=== PATIENT | male | born 1950 | race Caucasian/White ===

== ENCOUNTER 2016-12-25 18:05 | Inpatient (IN) | payer MEDICARE ==
[2016-12-25] MEDS ORDERED: SODIUM CHLORIDE 0.9% 500 ML IV STA (18:27)
[2016-12-25] MEDS ORDERED: SODIUM CHLORIDE 0.9% 1,000 ML IV STA (18:27)
--- NOTE | 2016-12-25 18:33 | ED ---
General Adult HPI - General Source: patient, RN notes reviewed, old records reviewed Mode of arrival: ambulatory Limitations: no limitations <Letitia Bonds - Last Filed: 12/25/16 19:06> <Maverick Pantoja - Last Filed: 12/25/16 20:21> - General Chief complaint: Upper Respiratory Infection Stated complaint: CHEST CONGESTION Time Seen by Provider: 12/25/16 18:18 - History of Present Illness Initial comments: Patient is 66-year-old male with chief complaint of right-sided chest pain for the past day. Patient reports that he will have intermittent spells of this chest pain. Patient reports that this current spell of a dull ache started at 3 PM today. Patient reports that he's had history of a heart attack in 2011. Patient reports that at that time he was placed on blood pressure and cholesterol medications however he had poor side effects of the patient reports that he does not take any blood pressure or cholesterol medications at this time. Patient states that he is a nonsmoker. He states that the pain has occurred intermittently through the past week he has this dull ache and will subside and 30 minutes. Patient reports that today he's had prolonged periods the dull ache. Patient denies any other sensory symptoms including diaphoresis or shortness of breath. Patient reports he's had a poor appetite today. He denies any fevers. He states he's had no specific cough. (Letitia Bonds) - Related Data Home Medications Medication Instructions Recorded Confirmed HYDROcodone/APAP 7.5-325MG [[place] 1 tab PO QID PRN 12/25/16 12/25/16 7.5-325] Allergies Allergy/AdvReac Type Severity Reaction Status Date / Time ibuprofen AdvReac GI BLEED Verified 12/25/16 18:34 Review of Systems ROS Other: All systems not noted in ROS Statement are negative. <Letitia Bonds - Last Filed: 12/25/16 19:06> ROS Other: All systems not noted in ROS Statement are negative. <Maverick Pantoja - Last Filed: 12/25/16 20:21> ROS Statement: Those systems with pertinent positive or pertinent negative responses have been documented in the HPI. Past Medical History Past Medical History: Hypertension, Myocardial Infarction ([place]) Additional Past Medical History / Comment(s): Rheumatic fever History of Any Multi-Drug Resistant Organisms: None Reported Past Surgical History: No Surgical Hx Reported Past Psychological History: No Psychological Hx Reported Smoking Status: Never smoker Past Alcohol Use History: None Reported Past Drug Use History: None Reported <Letitia Bonds - Last Filed: 12/25/16 19:06> General Exam Limitations: no limitations General appearance: alert, in no apparent distress Head exam: Present: atraumatic, normocephalic, normal inspection Eye exam: Present: normal appearance, PERRL, EOMI. Absent: scleral icterus, conjunctival injection, periorbital swelling ENT exam: Present: normal exam, mucous membranes moist Neck exam: Present: normal inspection. Absent: tenderness, meningismus, lymphadenopathy Respiratory exam: Present: normal lung sounds bilaterally. Absent: respiratory distress, wheezes, rales, rhonchi, stridor Cardiovascular Exam: Present: regular rate, normal rhythm, normal heart sounds. Absent: systolic murmur, diastolic murmur, rubs, gallop, clicks GI/Abdominal exam: Present: soft, normal bowel sounds. Absent: distended, tenderness, guarding, rebound, rigid Extremities exam: Present: normal inspection, full ROM, normal capillary refill. Absent: tenderness, pedal edema, joint swelling, calf tenderness Back exam: Present: normal inspection Neurological exam: Present: alert, oriented X3, CN II-XII intact Psychiatric exam: Present: normal affect, normal mood Skin exam: Present: warm, dry, intact, normal color. Absent: rash <Letitia Bonds - Last Filed: 12/25/16 19:06> <Maverick Pantoja - Last Filed: 12/25/16 20:21> - General Exam Comments Initial Comments: Bubba is a 66-year-old male. He is on appear to be in any acute distress. ( Letitia Bonds) Course <Letitia Bonds - Last Filed: 12/25/16 19:06> <Maverick Pantoja - Last Filed: 12/25/16 20:21> Vital Signs 12/25/16 12/25/16 12/25/16 18:10 18:52 19:06 Temperature 98.3 F Pulse Rate 103 H 103 H 91 Respiratory 22 18 18 Rate Blood Pressure 157/82 152/91 154/71 O2 Sat by Pulse 97 98 98 Oximetry 12/25/16 19:11 Temperature Pulse Rate 101 H Respiratory 18 Rate Blood Pressure 140/81 O2 Sat by Pulse 97 Oximetry - Reevaluation(s) Reevaluation #1: 12/25/16 19:00 Was transferred to the North side of the emergency department because of chest pain and irregular EKG. Patient does state that he had a heart attack in 2006 but never went to the doctor's. He was told 3 days later by his doctor that he had one. He's had cold symptoms for about a week and a half started developing some right-sided chest pain. He states his pain was 9/10 currently 2-3/10 and he is diaphoretic he denies any other symptoms right now. He has no ALLERGIES. (Maverick Pantoja) Reevaluation #2: 12/25/16 20:03 Reevaluation patient he is pain-free at this time he shows no change from the original one. With exodeviation right bundle-branch block changes rate was 89 ND interval 156 QRS duration 168 QT/QTC of 426/518 (Maverick Pantoja) Reevaluation #3: 12/25/16 20:18 I did reevaluate the patient he still pain-free a long discussion with him and his family regarding the findings. I did discuss case with Dr. Tony from cardiology the patient will go to the [facility]. I did discuss case with Dr. Zurita. (Maverick Pantoja) Medical Decision Making - Lab Data Result diagrams: 12/25/16 18:55 12/25/16 18:55 - EKG Data -: EKG Interpreted by Me EKG shows normal: sinus rhythm (Sinus rhythm rate 90. Interval 154 QRS duration was 70 daily since QTC of 460/5 weight right bundle-branch block left exodeviation septal changes. No old EKG was found) - Radiology Data Radiology results: report reviewed (I did review the x-ray report is evidence of a patchy opacity or infiltrate posteriorly.), image reviewed <Maverick Pantoja - Last Filed: 12/25/16 20:21> - Lab Data Lab Results 12/25/16 12/25/16 12/25/16 Range/Units 18:55 18:55 18:55 WBC 11.7 H (3.8-10.6) k/uL RBC 5.64 (4.30-5.90) m/uL Hgb 16.1 (13.0-17.5) gm/dL Hct 48.8 (39.0-53.0) % MCV 86.5 (80.0-100.0) fL MCH 28.5 (25.0-35.0) pg MCHC 33.0 (31.0-37.0) g/dL RDW 13.1 (11.5-15.5) % Plt Count 216 (150-450) k/uL Neutrophils % 74 % Lymphocytes % 16 % Monocytes % 6 % Eosinophils % 3 % Basophils % 1 % Neutrophils # 8.6 H (1.3-7.7) k/uL Lymphocytes # 1.9 (1.0-4.8) k/uL Monocytes # 0.7 (0-1.0) k/uL Eosinophils # 0.4 (0-0.7) k/uL Basophils # 0.1 (0-0.2) k/uL PT (9.0-12.0) sec INR (<1.1) APTT (22.0-30.0) sec D-Dimer (<0.60) mg/L FEU Sodium 141 (137-145) mmol/L Potassium 4.1 (3.5-5.1) mmol/L Chloride 102 (98-107) mmol/L Carbon Dioxide 23 (22-30) mmol/L Anion Gap 16 mmol/L BUN 9 (9-20) mg/dL Creatinine 0.80 (0.66-1.25) mg/dL Est GFR (MDRD) Af Amer >60 (>60 ml/min/1.73 sqM) Est GFR (MDRD) Non-Af >60 (>60 ml/min/1.73 sqM) Glucose 222 H (74-99) mg/dL Calcium 9.9 (8.4-10.2) mg/dL Magnesium 1.8 (1.6-2.3) mg/dL Total Bilirubin 1.1 (0.2-1.3) mg/dL AST 166 H (17-59) U/L ALT 41 (21-72) U/L Alkaline Phosphatase 80 (38-126) U/L Total Creatine Kinase 1120 H (55-170) U/L CK-MB (CK-2) 54.1 H* (0.0-2.4) ng/mL CK-MB (CK-2) Rel Index 4.8 Troponin I 5.730 H* (0.000-0.034) ng/mL NT-Pro-B Natriuret Pep pg/mL Total Protein 8.4 H (6.3-8.2) g/dL Albumin 4.5 (3.5-5.0) g/dL 12/25/16 12/25/16 Range/Units 18:55 18:55 WBC (3.8-10.6) k/uL RBC (4.30-5.90) m/uL Hgb (13.0-17.5) gm/dL Hct (39.0-53.0) % MCV (80.0-100.0) fL MCH (25.0-35.0) pg MCHC (31.0-37.0) g/dL RDW (11.5-15.5) % Plt Count (150-450) k/uL Neutrophils % % Lymphocytes % % Monocytes % % Eosinophils % % Basophils % % Neutrophils # (1.3-7.7) k/uL Lymphocytes # (1.0-4.8) k/uL Monocytes # (0-1.0) k/uL Eosinophils # (0-0.7) k/uL Basophils # (0-0.2) k/uL PT 10.6 (9.0-12.0) sec INR 1.1 (<1.1) APTT 24.9 (22.0-30.0) sec D-Dimer 0.60 H (<0.60) mg/L FEU Sodium (137-145) mmol/L Potassium (3.5-5.1) mmol/L Chloride (98-107) mmol/L Carbon Dioxide (22-30) mmol/L Anion Gap mmol/L BUN (9-20) mg/dL Creatinine (0.66-1.25) mg/dL Est GFR (MDRD) Af Amer (>60 ml/min/1.73 sqM) Est GFR (MDRD) Non-Af (>60 ml/min/1.73 sqM) Glucose (74-99) mg/dL Calcium (8.4-10.2) mg/dL Magnesium (1.6-2.3) mg/dL Total Bilirubin (0.2-1.3) mg/dL AST (17-59) U/L ALT (21-72) U/L Alkaline Phosphatase (38-126) U/L Total Creatine Kinase (55-170) U/L CK-MB (CK-2) (0.0-2.4) ng/mL CK-MB (CK-2) Rel Index Troponin I (0.000-0.034) ng/mL NT-Pro-B Natriuret Pep 2700 pg/mL Total Protein (6.3-8.2) g/dL Albumin (3.5-5.0) g/dL Critical Care Time <Letitia Bonds - Last Filed: 12/25/16 19:06> Critical Care Time: Yes <Maverick Pantoja - Last Filed: 12/25/16 20:21> Critical Care Time: 35 minutes of critical care time which included the initial history physical evaluation of labs and x-rays reevaluation patient response to therapy reevaluation of the patient several other medications. Discussion with the physician. Admission orders and DrLadarius mentation the above (Maverick Pantoja) Disposition <Letitia Bonds - Last Filed: 12/25/16 19:06> <Maverick Pantoja - Last Filed: 12/25/16 20:21> Clinical Impression: Non-ST elevation myocardial infarction (NSTEMI), Elevated troponin, Right bundle branch block, Left axis deviation Disposition: ADMITTED IP TO THIS [facility] Condition: Serious
[2016-12-25] MEDS ORDERED: NITROGLYCERIN SL TABS 0.4 MG TAB SUBLINGUAL STA (18:44)
[2016-12-25] MEDS ORDERED: ASPIRIN 81 MG CHEW PO STA (18:44)
[2016-12-25 19:13] LABS: Basophils # (A) 0.1 k/uL (0-0.2); Basophils % (A) 1 %; CH 29.7; CHCM 34.5; Eosinophils # (A) 0.4 k/uL (0-0.7); Eosinophils % (A) 3 %; HCT 48.8 % (39.0-53.0); HDW 2.84; HGB 16.1 gm/dL (13.0-17.5); Luc # (Auto) 0.13; Luc % (Auto) 1; Lymphocytes # (A) 1.9 k/uL (1.0-4.8); Lymphocytes % (A) 16 %; MCH 28.5 pg (25.0-35.0); MCV 86.5 fL (80.0-100.0); Mean Platelet Volume 7.6; Monocytes # (A) 0.7 k/uL (0-1.0); Monocytes % (A) 6 %; Neutrophils # (A) 8.6 k/uL (1.3-7.7); Neutrophils % (A) 74 %; RBC 5.64 m/uL (4.30-5.90); RDW 13.1 % (11.5-15.5); WBC 11.7 k/uL (3.8-10.6); WBC (Perox) 11.53
[2016-12-25 19:21] LABS: ALT 41 U/L (21-72); AST 166 U/L (17-59); Alkaline Phosphatase 80 U/L (38-126); Anion Gap 16 mmol/L; Blood Urea Nitrogen 9 mg/dL (9-20); Calcium 9.9 mg/dL (8.4-10.2); Carbon Dioxide 23 mmol/L (22-30); Chloride 102 mmol/L (98-107); Glucose 222 mg/dL (74-99); Magnesium 1.8 mg/dL (1.6-2.3); Non-African American GFR(MDRD) >60 (>60 ml/min/1.73 sqM); Potassium 4.1 mmol/L (3.5-5.1); Sodium 141 mmol/L (137-145); Total Bilirubin 1.1 mg/dL (0.2-1.3); Total Protein 8.4 g/dL (6.3-8.2)
--- NOTE | 2016-12-25 19:34 | XR ---
EXAMINATION TYPE: XR chest 2V DATE OF EXAM: 12/25/2016 7:28 PM COMPARISON: 08/03/2009 HISTORY: 56-year-old male with chest pain TECHNIQUE: AP and lateral views FINDINGS: The heart is normal size. Aorta within normal limits. Diffuse interstitial prominence is unchanged an d appears chronic. There is some patchy posterior basilar opacity on the lateral view. No pleural eff usion. 1.1 cm nodular density at the right base. IMPRESSION: 1. Chronic appearing changes. However, there is some patchy posterior basilar opacity on the lateral view that could represent atelectasis or early infiltrate. 2. Possible 1.1 cm right basilar pulmonary nodule. Recommend nonemergent follow-up contrast enhanced CT chest to further evaluate.
[2016-12-25 19:50] LABS: INR 1.1 (<1.1); Partial Thromboplastin Time 24.9 sec (22.0-30.0); Prothrombin Time 10.6 sec (9.0-12.0)
[2016-12-25 19:54] LABS: Creatine Kinase MB 54.1 ng/mL (0.0-2.4); Troponin I 5.73 ng/mL (0.000-0.034)
[2016-12-25] MEDS ORDERED: ATORVASTATIN 80 MG TAB PO STA (20:15)
[2016-12-25] MEDS ORDERED: NITROGLYCERIN OINT 1 INCH/GM PACKET TOPICAL STA (20:15)
[2016-12-25] MEDS ORDERED: HEPARIN SODIUM,PORCINE/D5W PMX 25,000 UNIT in DEXTROSE/WATER 1 500ML.BAG IV SCH (20:15)
[2016-12-25] MEDS ORDERED: HEPARIN SODIUM,PORCINE 5,000 UNIT/ML 1 ML VIAL IV ONE (20:15)
[2016-12-25] MEDS ORDERED: NITROGLYCERIN SL TABS 0.4 MG TAB SUBLINGUAL PRN ×2 (20:21→22:11)
--- NOTE | 2016-12-25 20:23 | ED ---
Medical Decision Making - Lab Data Result diagrams: 12/25/16 18:55 12/25/16 18:55 Lab Results 12/25/16 12/25/16 12/25/16 Range/Units 18:55 18:55 18:55 WBC 11.7 H (3.8-10.6) k/uL RBC 5.64 (4.30-5.90) m/uL Hgb 16.1 (13.0-17.5) gm/dL Hct 48.8 (39.0-53.0) % MCV 86.5 (80.0-100.0) fL MCH 28.5 (25.0-35.0) pg MCHC 33.0 (31.0-37.0) g/dL RDW 13.1 (11.5-15.5) % Plt Count 216 (150-450) k/uL Neutrophils % 74 % Lymphocytes % 16 % Monocytes % 6 % Eosinophils % 3 % Basophils % 1 % Neutrophils # 8.6 H (1.3-7.7) k/uL Lymphocytes # 1.9 (1.0-4.8) k/uL Monocytes # 0.7 (0-1.0) k/uL Eosinophils # 0.4 (0-0.7) k/uL Basophils # 0.1 (0-0.2) k/uL PT (9.0-12.0) sec INR (<1.1) APTT (22.0-30.0) sec D-Dimer (<0.60) mg/L FEU Sodium 141 (137-145) mmol/L Potassium 4.1 (3.5-5.1) mmol/L Chloride 102 (98-107) mmol/L Carbon Dioxide 23 (22-30) mmol/L Anion Gap 16 mmol/L BUN 9 (9-20) mg/dL Creatinine 0.80 (0.66-1.25) mg/dL Est GFR (MDRD) Af Amer >60 (>60 ml/min/1.73 sqM) Est GFR (MDRD) Non-Af >60 (>60 ml/min/1.73 sqM) Glucose 222 H (74-99) mg/dL Calcium 9.9 (8.4-10.2) mg/dL Magnesium 1.8 (1.6-2.3) mg/dL Total Bilirubin 1.1 (0.2-1.3) mg/dL AST 166 H (17-59) U/L ALT 41 (21-72) U/L Alkaline Phosphatase 80 (38-126) U/L Total Creatine Kinase 1120 H (55-170) U/L CK-MB (CK-2) 54.1 H* (0.0-2.4) ng/mL CK-MB (CK-2) Rel Index 4.8 Troponin I 5.730 H* (0.000-0.034) ng/mL NT-Pro-B Natriuret Pep pg/mL Total Protein 8.4 H (6.3-8.2) g/dL Albumin 4.5 (3.5-5.0) g/dL 12/25/16 12/25/16 Range/Units 18:55 18:55 WBC (3.8-10.6) k/uL RBC (4.30-5.90) m/uL Hgb (13.0-17.5) gm/dL Hct (39.0-53.0) % MCV (80.0-100.0) fL MCH (25.0-35.0) pg MCHC (31.0-37.0) g/dL RDW (11.5-15.5) % Plt Count (150-450) k/uL Neutrophils % % Lymphocytes % % Monocytes % % Eosinophils % % Basophils % % Neutrophils # (1.3-7.7) k/uL Lymphocytes # (1.0-4.8) k/uL Monocytes # (0-1.0) k/uL Eosinophils # (0-0.7) k/uL Basophils # (0-0.2) k/uL PT 10.6 (9.0-12.0) sec INR 1.1 (<1.1) APTT 24.9 (22.0-30.0) sec D-Dimer 0.60 H (<0.60) mg/L FEU Sodium (137-145) mmol/L Potassium (3.5-5.1) mmol/L Chloride (98-107) mmol/L Carbon Dioxide (22-30) mmol/L Anion Gap mmol/L BUN (9-20) mg/dL Creatinine (0.66-1.25) mg/dL Est GFR (MDRD) Af Amer (>60 ml/min/1.73 sqM) Est GFR (MDRD) Non-Af (>60 ml/min/1.73 sqM) Glucose (74-99) mg/dL Calcium (8.4-10.2) mg/dL Magnesium (1.6-2.3) mg/dL Total Bilirubin (0.2-1.3) mg/dL AST (17-59) U/L ALT (21-72) U/L Alkaline Phosphatase (38-126) U/L Total Creatine Kinase (55-170) U/L CK-MB (CK-2) (0.0-2.4) ng/mL CK-MB (CK-2) Rel Index Troponin I (0.000-0.034) ng/mL NT-Pro-B Natriuret Pep 2700 pg/mL Total Protein (6.3-8.2) g/dL Albumin (3.5-5.0) g/dL Disposition Clinical Impression: Non-ST elevation myocardial infarction (NSTEMI), Elevated troponin, Right bundle branch block, Left axis deviation Disposition: ADMITTED IP TO THIS [facility] Condition: Serious Referrals: None,Stated [Primary Care Provider] - 1-2 days
[2016-12-25] MEDS ORDERED: HEPARIN SODIUM,PORCINE 30 ML 30 ML ONE (20:44)
[2016-12-25] MEDS ORDERED: FUROSEMIDE 10 MG/ML 2 ML VIAL IV STA (20:46)
[2016-12-25] MEDS ORDERED: LIDOCAINE 2% INJ 20 MG/ML (20 ML MDV) ONE (20:47)
--- NOTE | 2016-12-25 20:48 | P.CRDCN ---
History of Present Illness Consult date: 12/25/16 History of present illness: This is a 66-year-old gentleman with history of heavy smoking and questionable previous myocardial infarction has been having upper respiratory infection and cough for a week. Over the last 34 days patient has been having exertional right-sided chest pain off and on. Around 3:00 today patient again had right- sided chest pain like squeezing sensation and finally patient came to the emergency room. His EKG showed sinus rhythm with evidence of right bundle- branch block pattern with some ST elevation noted mostly in the 1 and aVL may be some in V1 and V2 with ST depressions in inferior leads. This is changes are subtle in nature. His cardiac enzymes showed elevation of CPK with positive troponins. Patient was treated with sublingual nitroglycerin with relief of his chest discomfort. At the time of my examination patient is seems to be pain free. However given his stuttering pattern of the pain and positive cardiac enzymes, patient is advised to have cardiac catheterization for definitive diagnosis and further intervention as needed. Patient was explained the risks and benefits of the procedure which she fully understood and accepted. Past Medical History Past Medical History: Hypertension, Myocardial Infarction ([place]) Additional Past Medical History / Comment(s): Rheumatic fever History of Any Multi-Drug Resistant Organisms: None Reported Past Surgical History: No Surgical Hx Reported Past Psychological History: No Psychological Hx Reported Smoking Status: Never smoker Past Alcohol Use History: None Reported Past Drug Use History: None Reported Medications and Allergies Home Medications Medication Instructions Recorded Confirmed Type HYDROcodone/APAP 7.5-325MG [[place] 1 tab PO QID PRN 12/25/16 12/25/16 History 7.5-325] Allergies Allergy/AdvReac Type Severity Reaction Status Date / Time ibuprofen AdvReac GI BLEED Verified 12/25/16 18:34 Physical Exam Vitals: Vital Signs Pulse Resp BP Pulse Ox 12/25/16 20:38 91 18 138/86 96 GENERAL EXAM: Patient is alert and oriented and doesn't appear to be in any acute distress HEENT: Normocephalic. Normal reaction of pupils, equal size, normal range of extraocular motion. No erythema or exudates in the throat. NECK: No masses, no nuchal rigidity. CHEST: No chest wall deformity. LUNGS: Lungs show expiratory rhonchi and wheezing HEART: S1 and S2 normal with no audible mumurs or gallops. Regular rhythm, femorals equal on both sides.. ABDOMEN: No hepatosplenomegaly, normal bowel sounds, no guarding or rigidity. SKIN: No rashes CENTRAL NERVOUS SYSTEM: No focal deficits. EXTREMITIES: No cyanosis, clubbing or edema. Results 12/25/16 18:55 12/25/16 18:55 Current Medications Generic Name Dose Route Start Last Admin Trade Name Freq PRN Reason Stop Dose Admin Albuterol/Ipratropium 3 ml 12/26/16 00:00 Duoneb 0.5 Mg-3 Mg/3 Ml Soln INHALATION RT-Q4H PORFIRIO Aspirin 325 mg 12/26/16 09:00 Aspirin PO DAILY PORFIRIO Sodium Chloride 1,000 mls @ 100 mls/hr 12/25/16 18:27 12/25/16 18:59 Saline 0.9% IV 12/26/16 04:26 100 mls/hr .Q10H STA Administration Heparin Sodium/Dextrose 25,000 500 mls @ 20.03 mls/hr 12/25/16 20:15 20:25 unit/ IV Solution IV 9.6 units/kg/hr .Q24H PORFIRIO 20.03 mls/hr Protocol Administration 9.6 UNITS/KG/HR Ceftriaxone Sodium 1,000 mg/ 50 mls @ 100 mls/hr 12/25/16 20:22 Sodium Chloride IVPB 12/25/16 20:51 ONCE STA Nitroglycerin 0.4 mg 12/25/16 20:21 Nitrostat SUBLINGUAL Q5M PRN Chest Pain EKG Interpretations (text) EKG showed sinus rhythm with evidence of right bundle branch block pattern with ST elevation 1 and aVL size to of the lateral wall infarct and and diffuse ST-T changes also in the anterior and inferior leads. Assessment and Plan (1) COPD (chronic obstructive pulmonary disease) Status: Acute (2) Non-ST elevation myocardial infarction (NSTEMI) Status: Acute (3) Right bundle branch block Status: Acute (4) Pneumonia Status: Acute (5) Congestive heart failure Status: Acute Plan: We will proceed with cardiac catheterization for definitive diagnosis and primary intervention as needed. Meanwhile patient will be started on IV heparin and aspirin nitrates and beta blockers along with diuretics. Prognosis is guarded. Echocardiogram will be done tomorrow
[2016-12-25] MEDS ORDERED: METOPROLOL TARTRATE 25 MG TAB PO SCH (21:00)
[2016-12-25] MEDS ORDERED: IV FLUID CONTINUATION 1,000 ML IV ONE (21:05)
[2016-12-25] MEDS ORDERED: MIDAZOLAM 2 MG/2 ML VIAL ONE (21:12)
[2016-12-25] MEDS ORDERED: fentaNYL (PF) 50 MCG/ML 2 ML AMP ONE (21:13)
[2016-12-25] MEDS ORDERED: fentaNYL (PF) 50 MCG/ML 2 ML AMP IV ONE (21:14)
[2016-12-25] MEDS ORDERED: LIDOCAINE 2% INJ 20 MG/ML SQ ONE (21:15)
[2016-12-25] MEDS ORDERED: MIDAZOLAM 2 MG/2 ML VIAL IV ONE (21:16)
[2016-12-25] MEDS ORDERED: PRASUGREL 10 MG TAB ONE ×2 (21:22→21:26)
[2016-12-25] MEDS ORDERED: BIVALIRUDIN BOLUS 250 MG/50 ML IV ONE (21:28)
[2016-12-25] MEDS ORDERED: PRASUGREL 10 MG TAB PO ONE (21:28)
[2016-12-25] MEDS ORDERED: BIVALIRUDIN 250 MG in SODIUM CHLORIDE 0.9% 50 ML IV ONE (21:29)
--- NOTE | 2016-12-25 21:36 | P.PCN ---
Date of Procedure: 12/25/16 Preoperative Diagnosis: Non-ST elevation microinfarction Postoperative Diagnosis: Significant disease involving the proximal LAD Description of Procedure: HISTORY: This is a 66-year-old gentleman with history of chronic smoking and questionable previous myocardial infarction has had cold-like symptoms and intermittent chest pain for the last 3 days mostly centered on the right side. Today around 3:00 patient started having chest pain and came to the emergency room. His EKG showed right bundle branch block sedation of ST elevation 1 and aVL and some ST depressions in inferior leads. His pain was relieved with sublingual nitroglycerin. Cardiac enzymes however showed elevation of CPK to 1000 with positive troponins. Because of stuttering nature of the pain and positive troponin patient is advised to have a cardiac cath for definitive diagnosis with intervention for primary intervention. CONSENT:I have discussed the risks, benefits and alternative therapies for the above-mentioned procedure and for both sedation/analgesia as well as necessary blood product administration, if indicated, as they pertain to this patient. The patient has indicated understanding and acceptance of the risks and procedures discussed. PROCEDURE: Patient was brought to the lab in a fasting state. Patient was given some IV sedation. The right groin is infiltrated with lidocaine and right femoral artery was entered using Seldinger technique. A 6-[place] catheter was left in place and selective coronary arteriography was performed. Patient tolerated the procedure well. Patient went on to have stent placement the lady by Dr. Espinosa HEMODYNAMICS: Aortic pressure is 140/90. Left ankle end-diastolic pressure was not measured at this time SELECTIVE CORONARY ARTERIOGRAPHY: LEFT MAIN: Normal length and patent THE LEFT ANTERIOR DESCENDING CORONARY ARTERY: Good caliber vessel with about 95% stenosis involving the ostium with a sized of a clot. There is sluggish flow into the distal LAD with 70% lesion in mid area. THE LEFT CIRCUMFLEX AND IS CORONARY ARTERY: Good caliber vessel giving rise a small first diagonal and good-sized second diagonal branch. There to PLV branches. The circumflex is free of any significant focal occlusive disease.T THE RIGHT CORONARY ARTERY:he right coronary artery is a good caliber vessel giving rise to good-sized PDA and PLV. It has an ectopic origin. No significant disease noted in the right coronary artery LEFT VENTRICULOGRAPHY: Not done FINAL IMPRESSION: 95% stenosis involving the ostial LAD with clot. Moderate disease in mid LAD. The right and circumflex are free of any occlusive disease. PLAN: Stent placement of the LAD being done by Dr. Espinosa PROGNOSIS: Guarded
[2016-12-25] MEDS ORDERED: FUROSEMIDE 10 MG/ML 4 ML VIAL ONE ×2 (21:45→22:19)
[2016-12-25] MEDS: FUROSEMIDE 10 MG/ML 4 ML VIAL IV ONE ×2 (21:48→22:06)
[2016-12-25] MEDS ORDERED: IOHEXOL 350 MG/ML 100 ML BOTTLE INJ ONE (22:04)
[2016-12-25] MEDS ORDERED: ATROPINE SULFATE 0.1 MG/ML 10ML SYRINGE IV PRN (22:11)
[2016-12-25] MEDS ORDERED: MAG HYDROX/AL HYDROX/SIMETH 30 ML CUP PO PRN (22:11)
[2016-12-25] MEDS ORDERED: RX INFO: IV CONTRAST WAS GIVEN 1 EACH MISC MISCELLANE PRN (22:11)
[2016-12-25] MEDS ORDERED: ZOLPIDEM 5 MG TAB PO PRN (22:11)
[2016-12-25] MEDS ORDERED: SODIUM CHLORIDE 0.9% 1,000 ML IV SCH (22:15)
[2016-12-25] MEDS ORDERED: FUROSEMIDE 10 MG/ML 4 ML VIAL IV ONE (22:22)
[2016-12-25 22:49] LABS: Glucose,Whole Blood 208 mg/dL (75-99)
[2016-12-25] MEDS: IPRATROPIUM-ALBUTEROL 3 ML NEB INHALATION SCH (22:57)
[2016-12-26] MEDS: SPIRONOLACTONE 25 MG TAB PO SCH ×2 (00:33→10:42)
[2016-12-26] MEDS: IPRATROPIUM-ALBUTEROL 3 ML NEB INHALATION SCH ×6 (03:22→23:54)
[2016-12-26 06:24] LABS: Anion Gap 15 mmol/L; Blood Urea Nitrogen 11 mg/dL (9-20); Carbon Dioxide 25 mmol/L (22-30); Chloride 99 mmol/L (98-107); Cholesterol 189 mg/dL (<200); Glucose 256 mg/dL (74-99); HDL Cholesterol 52 mg/dL (40-60); Non-African American GFR(MDRD) >60 (>60 ml/min/1.73 sqM); Potassium 4.2 mmol/L (3.5-5.1); Sodium 139 mmol/L (137-145); Triglycerides 102 mg/dL (<150)
[2016-12-26 07:42] LABS: Glucose,Whole Blood 229 mg/dL (75-99)
[2016-12-26] MEDS: INSULIN LISPRO (humaLOG) 300 UNIT/3 ML VIAL SQ SCH ×4 (08:06→23:37)
[2016-12-26] MEDS: ASPIRIN 325 MG TAB PO SCH (08:07)
[2016-12-26] MEDS: CARVEDILOL 3.125 MG TAB PO SCH ×2 (08:07→17:28)
[2016-12-26] MEDS: PRASUGREL 10 MG TAB PO SCH (08:07)
[2016-12-26] MEDS ORDERED: ASPIRIN 325 MG TAB PO SCH (09:00)
--- NOTE | 2016-12-26 09:55 | ECHOF ---
Referral Reason:mi MEASUREMENTS -------- HEIGHT: 182.9 cm WEIGHT: 96.2 kg BP: IVSd: 1.5 cm (0.6 - 1.1) LVIDd: 4.9 cm (3.9 - 5.3) LVPWd: 1.5 cm (0.6 - 1.1) IVSs: 1.6 cm LVIDs: 4.3 cm LVPWs: 1.2 cm Ao Diam: 3.5 cm (2.0 - 3.7) AV Cusp: 2.3 cm (1.5 - 2.6) LA Diam: 2.9 cm (2.7 - 3.8) MV EXCURSION: 18.438 mm (> 18.000) MV EF SLOPE: 165 mm/s (70 - 150) EPSS: 1.0 cm MV E James: 0.93 m/s MV DecT: 161 ms MV A James: 0.39 m/s MV E/A Ratio: 2.38 RAP: 5.00 mmHg RVSP: 9.49 mmHg FINDINGS -------- Sinus rhythm. This was a technically good study. There is moderate concentric left ventricular hypertrophy. Overall left ventricular systolic function is severely impaired with, an EF between 20 - 25 %. Mid Basal inferior lateral Segments Ayan Only. The right ventricle is normal in size and function. The left atrium is normal in size. The right atrium is normal in size. Aortic valve is trileaflet and is mildly thickened. The mitral valve leaflets are mildly thickened. Mild mitral regurgitation is present. Mild tricuspid regurgitation present. The right ventricular systolic pressure, as measured by Doppler, is 9.49mmHg. Pulmonic valve appears structurally normal. The aortic root size is normal. The pericardium is normal. CONCLUSIONS -------- 1. Sinus rhythm. 2. Mild mitral regurgitation is present. 3. Mild tricuspid regurgitation present. 4. The right ventricular systolic pressure, as measured by Doppler, is 9.49mmHg. 5. Pulmonic valve appears structurally normal. 6. The aortic root size is normal. 7. The pericardium is normal. 8. This was a technically good study. 9. There is moderate concentric left ventricular hypertrophy. 10. Overall left ventricular systolic function is severely impaired with, an EF between 20 - 25 %. 11. The right ventricle is normal in size and function. 12. The left atrium is normal in size. 13. The right atrium is normal in size. 14. Aortic valve is trileaflet and is mildly thickened. 15. The mitral valve leaflets are mildly thickened. [employer] OBJECTS DEVELOPER: Isha Owens RDCS
--- NOTE | 2016-12-26 10:37 | XR ---
EXAMINATION TYPE: XR chest 1V portable DATE OF EXAM: 12/26/2016 10:14 AM COMPARISON: 12/25/2016 HISTORY: Chest pain TECHNIQUE: Single frontal view of the chest is obtained. FINDINGS: The heart is stable. Underlying COPD suspected. No pneumothorax or overt failure. No nodul arity seen on today's exam within the right lower lobe. No overt consolidation. IMPRESSION: 1. No definite acute process.
[2016-12-26] MEDS: FUROSEMIDE 20 MG TAB PO SCH ×2 (10:41→23:36)
[2016-12-26] MEDS: LISINOPRIL 5 MG TAB PO SCH ×3 (11:58→23:37)
[2016-12-26] MEDS: AZITHROMYCIN 500 MG TAB PO SCH (11:59)
[2016-12-26] MEDS: methylPREDNISolone SOD SUCCI 40 MG/ML 1 ML VIAL IV SCH ×3 (11:59→23:38)
[2016-12-26 12:47] LABS: Troponin I 76.8 ng/mL (0.000-0.034)
[2016-12-26 12:54] LABS: Glucose,Whole Blood 194 mg/dL (75-99)
[2016-12-26 13:27] LABS: Hemoglobin A1C 8.5 % (4.2-6.1)
--- NOTE | 2016-12-26 13:46 | PN ---
A 66-year-old gentleman is admitted to hospital with non-ST segment elevation CA, underwent cardiac catheterization and angioplasty of LAD. EKG showed sinus rhythm with right bundle branch block. He is pain free, hemodynamically stable and in no apparent distress. An echocardiogram on him showed severe LV systolic dysfunction with an ejection fraction of 20% to 25%. On exam, comfortable at rest. Vital signs are stable. There is no jugular venous distention. Chest is clear to auscultation and percussion. Heart exam reveals first and second heart sounds. No gallop. Exam of the extremities did not reveal any edema. Peripheral pulses are felt. The patient is on aspirin, Lipitor, Coreg, Lasix 20 b.i.d., Zestril 5 b.i.d., which I am going to decrease to 5 mg daily along with Aldactone and Effient. ASSESSMENT: 1. Acute non-ST segment elevation myocardial infarction. 2. Ischemic cardiomyopathy. PLAN: Patient will continue with the current medical therapy. I will transfer him to 6th floor.
--- NOTE | 2016-12-26 15:07 | P.CNPUL ---
History of Present Illness Consult date: 12/26/16 Requesting physician: Zoraida Zurita Reason for consult: dyspnea Chief complaint: Cold-like symptoms and intermittent chest pains for the last 3 days History of present illness: This is a 66-year-old white male, smoker, presented to the hospital yesterday with 1 week history of cough, symptoms of URI and cold-like symptoms, and he was having significant exertional right-sided chest pain off and on. Pain was described as squeezing sensation, and upon arrival to the ER he was more concerned about his pain and that his URI symptoms. EKG upon evaluation showed sinus rhythm with evidence of right bundle branch block pattern and ST elevation noted in [address] depression in the inferior leads. Cardiac enzymes were noted to be elevated including positive CPK and positive troponins. His pain was relieved with sublingual nitroglycerin. Patient was seen by cardiology on consultation, and he underwent cardiac catheterization which showed significant disease involving the LAD. Stenting of the LAD was done, patient was transferred back to the ICU, he was complaining of shortness of breath, but his chest x-ray showed no evidence of active disease. His admission chest x-ray questioned a patchy opacity noted best on the lateral view , and it was felt to be either atelectasis or early infiltrate. At any rate patient was admitted, placed on bronchodilators, he was also given diuretics after his stent placement, and by the time I evaluated the patient today, he was pain-free, feeling much better, and I was able to titrate his oxygen down from 6 L to 2 L. According to the nurse he was having episodes of wheezing earlier, but that seemed to be improved by the time of my evaluation. Review of Systems 14 point review of systems were obtained, please refer to pertinent positives and negatives as per HPI. Past Medical History Past Medical History: Asthma, Hypertension, Myocardial Infarction ([place]) Additional Past Medical History / Comment(s): Rheumatic fever. [place] 2006, 2011. stopped taking prescribed medications 4-5 years ago Last Myocardial Infarction Date:: 12/25/16 History of Any Multi-Drug Resistant Organisms: None Reported Past Surgical History: Heart Catheterization With Stent Past Anesthesia/Blood Transfusion Reactions: No Reported Reaction Date of Last Stent Placement:: 12/25/16 Past Psychological History: No Psychological Hx Reported Smoking Status: Former smoker Past Alcohol Use History: None Reported Additional Past Alcohol Use History / Comment(s): pt stated he started smoking when he was 13 and stopped smoking at 62. he smoked 3-4 packs per day Past Drug Use History: None Reported Medications and Allergies Home Medications Medication Instructions Recorded Confirmed Type Albuterol Sulfate [Accuneb] 0 mg INHALATION 12/25/16 History HYDROcodone/APAP 7.5-325MG [[facility] 1 tab PO QID PRN 12/25/16 12/25/16 History 7.5-325] Allergies Allergy/AdvReac Type Severity Reaction Status Date / Time ibuprofen AdvReac Mild Abdominal Verified 12/25/16 23:27 Pain Physical Exam Vitals: Vital Signs Temp Pulse Resp BP Pulse Ox 12/26/16 14:00 86 17 102/58 96 12/26/16 13:00 81 15 102/58 96 12/26/16 12:30 83 16 98/56 97 12/26/16 12:00 98.3 F 81 15 113/74 96 12/26/16 11:30 78 19 103/66 97 12/26/16 11:29 85 12/26/16 11:16 79 12/26/16 11:00 77 18 101/52 96 12/26/16 10:00 85 16 103/67 97 12/26/16 09:00 89 14 107/66 97 12/26/16 08:00 98.1 F 94 13 94/71 95 12/26/16 07:00 93 19 109/66 93 L 12/26/16 06:30 94 17 115/69 95 12/26/16 06:00 100 22 105/68 96 12/26/16 05:30 104 H 19 101/66 96 12/26/16 05:00 98 16 101/64 96 12/26/16 04:30 94 14 106/66 95 12/26/16 04:00 97.7 F 94 18 114/78 95 12/26/16 03:33 96 12/26/16 03:30 97 15 109/72 97 12/26/16 03:24 96 12/26/16 03:00 94 18 108/72 94 L 12/26/16 02:30 98 13 112/78 92 L 12/26/16 02:00 97 17 113/73 92 L 12/26/16 01:30 105 H 15 112/73 96 12/26/16 01:00 103 H 15 102/64 93 L 12/26/16 00:30 100 20 108/75 95 12/26/16 00:00 97.7 F 112 H 19 104/73 92 L 12/25/16 23:31 98.5 F 20 90 L 12/25/16 23:30 113 H 17 120/90 93 L 12/25/16 23:27 91 L 12/25/16 23:12 110 H 12/25/16 23:00 119 H 25 H 166/105 96 12/25/16 22:58 120 H 12/25/16 22:50 126 H 22 166/105 98 12/25/16 22:40 127 H 24 159/105 98 12/25/16 20:38 97.6 F 91 18 138/86 96 Intake and Output 12/26/16 12/26/16 12/26/16 06:59 14:59 22:59 Intake Total 1075 695 Output Total 1950 340 Balance -875 355 Intake: IV 20 0.9 at KVO 20 Intake, IV Titration 525 425 Amount Sodium Chloride 0.9% 1, 525 375 000 ml @ 50 mls/hr IV . Q20H [facility] Rx#:[id number] cefTRIAXone 1,000 mg In 50 Sodium Chloride 0.9% 50 ml @ 100 mls/hr IVPB Q24HR@1200 [facility] Rx#: [id number] Oral 550 250 Output: Urine 1950 340 Other: Voiding Method Urinal Urinal # Voids 1 Weight 97.4 kg Physical Exam: Revealed a 66-year-old in no distress HEENT:[Neck is supple.] [No neck masses.] [No thyromegaly.] [No JVD.] Chest: [Clear throughout, no crackles, no rhonchi, no wheezes.] Cardiac Exam: [Normal S1 and S2, no S3 gallop, no murmur.] Abdomen: [Soft, nontender, no megaly, no rebound, no guarding, normal bowel sounds.] Extremities: [No clubbing, no edema, no cyanosis.] Neurological Exam: [No focal neurologic deficit.] Results - Laboratory Findings CBC and BMP: 12/25/16 18:55 12/26/16 05:56 PT/INR, D-dimer PT 10.6 sec (9.0-12.0) 12/25/16 18:55 INR 1.1 (<1.1) 12/25/16 18:55 D-Dimer 0.60 mg/L FEU (<0.60) H 12/25/16 18:55 Abnormal lab findings: Abnormal Labs 12/25/16 12/26/16 12/26/16 22:47 00:31 05:56 Glucose POC Glucose (mg/dL) 208 H Hemoglobin A1c Total Creatine Kinase 2662 H CK-MB (CK-2) 113.0 H* Troponin I 150.000 H* 132.000 H* LDL Cholesterol, Calc 12/26/16 12/26/16 12/26/16 05:56 05:56 07:37 Glucose 256 H POC Glucose (mg/dL) 229 H Hemoglobin A1c 8.5 H Total Creatine Kinase CK-MB (CK-2) Troponin I LDL Cholesterol, Calc 117 H 12/26/16 12/26/16 11:45 12:49 Glucose POC Glucose (mg/dL) 194 H Hemoglobin A1c Total Creatine Kinase 1962 H CK-MB (CK-2) 74.0 H* Troponin I 76.800 H* LDL Cholesterol, Calc - Diagnostic Findings Chest x-ray: image reviewed (No active disease noted on the follow-up chest x- ray done today.) Assessment and Plan Plan: Impression: 1 acute non-ST elevation myocardial infarction and ischemic cardiomyopathy as noted on the cardiac catheterization report. 2 status post stenting of the LAD, postoperative day #1. 3 ischemic cardiomyopathy and severe LV dysfunction with ejection fraction of 20 -25% 4 suspect some component of COPD and left lower lobe atelectasis, strongly doubt pneumonia. Recommendation: Agree with the present treatment plan including bronchodilators , aspirin and Lipitor Corag Lasix Zestril Aldactone,effient, and antibiotics were given empirically. I expect the patient to do well, and we can possibly transferred to a cardiac floor either today or tomorrow in a.m. Time with Patient: Greater than 30
[2016-12-26 16:51] LABS: Glucose,Whole Blood 301 mg/dL (75-99)
[2016-12-26 16:51] LABS: Glucose,Whole Blood 303 mg/dL (75-99)
--- NOTE | 2016-12-26 17:28 | PTCA ---
DATE OF SERVICE: Mr. Ramirez is a 66-year-old male with no prior documented history of coronary artery disease who presented with evidence of chest discomfort and troponin elevation with EKG changes. He underwent cardiac catheterization by Dr. Tony and was found to have subtotally occluded proximal LAD with intracoronary thrombus. In view of that, recommendation was made regarding angioplasty and stenting. The procedure as well as risks and complications were discussed with the patient, who was in full understanding and agreement. PROCEDURE: A 6 [place] FR4 guiding catheter was introduced into the system. After cannulating the left main, a 0.014 balanced medium-weight J-wire was advanced across the lesion, positioned distally. An [place] catheter was advanced. One run was done with removal of thrombotic material. Following that, a 3.0 x 12 mm Xience Alpine stent was deployed, post dilated at 14 atmospheres. Following that, the balloon was removed and a 3.25 x 8 mm NC Euphora balloon was advanced, and one inflation at 14 atmospheres was done. After the last inflation, after appropriate wait, the balloon and the guidewire were withdrawn back into the guiding catheter. Images were obtained and repeated. Those images revealed stable successful stenting. At that point the guiding catheter, the balloon and the guidewire were removed and a 6 Ni[place]an tight pigtail catheter was introduced in the left ventricle and a 30-degree MELGOZA view of the left ventricle was obtained. Following that catheter and sheaths were removed. Hemostasis was obtained with deployment of an Angio-Seal. There was no immediate complication. Patient was returned to his room in stable condition. Of note, patient was pain-free at the end of procedure. He received Angiomax per protocol as well as oral loading dose of Effient. RESULTS: 1. Successful stenting of the proximal LAD with reduction in stenosis from 99% to 0%. 2. Left ventricular end-diastolic pressure of 34 mmHg. 3. Severely impaired left ventricular systolic pressure with apical akinesis; ejection fraction 35%. RECOMMENDATION: Patient will be continued on aspirin, Effient, beta kimberley and statin. The importance of dual antiplatelet treatment were discussed with the patient and his family. They are in full understanding and agreement.
--- NOTE | 2016-12-26 20:54 | HP ---
DATE OF ADMISSION: 12/25/2016 CHIEF COMPLAINT: Chest pain. HISTORY OF PRESENT ILLNESS: Mr. Ramirez is a 66-year-old man with known history of hypertension, hyperlipidemia, not on any medication at this time and also history of smoking quit 40 years ago. Came to the hospital with complaints of chest pain, exertional, in the right side of the chest on and off. The patient around 3:00 p.m. yesterday patient had right-sided chest pain, squeezing sensation and lasted about 40 minutes which made him come to the hospital. His EKG showed right bundle branch block and ST depression in V1 and V2 and inferior leads. Patient was found to have elevated cardiac enzymes and underwent cardiac catheterization. Patient did have relief of his symptoms with sublingual nitroglycerin. Patient had a stent placed to the left anterior descending artery by Dr. Espinosa. Currently, patient is free of chest pain. Patient also having elevated HbA1c and possible new onset diabetes mellitus as well. Patient does have a history of smoking quit 40 years back. Currently patient is saturating well on 2 liters nasal cannula. REVIEW OF SYSTEMS: CONSTITUTIONAL: No fever. No chills. RESPIRATORY: No cough or sputum production. Patient does have baseline shortness of breath. CARDIOVASCULAR: No chest pain or shortness of breath. No leg swelling. ABDOMEN: No nausea or vomiting, abdominal pain. GENITOURINARY: Negative. ENDOCRINE: Negative. PSYCHIATRY: Negative. SKIN: Negative. MUSCULOSKELETAL: Negative. All other 14 point review of systems negative except as above. Past medical history includes hypertension, history of myocardial infarction, asthma, hyperlipidemia, rheumatic fever and history of smoking. Noncompliant with medications since 4 to 5 years. PAST SURGICAL HISTORY: Cardiac catheterization and stent placement on 12/25/2016. SOCIAL HISTORY: Patient is a former smoker; quit smoking 4 years back. He smoked 3 to 4 packs per day. Denied any alcohol use. Denied any drugs or IVDU. FAMILY HISTORY: Denied any history of hypertension, diabetes mellitus or premature heart disease in the family. Home medications include: 1. Albuterol inhaler. 2. [place] 7.5. ALLERGIES: IBUPROFEN. PHYSICAL EXAMINATION: A 66-year-old man lying in bed. Awake, alert, oriented, x3, appears to be in no apparent distress. VITALS: Blood pressure is 103/66, pulse 98, temperature afebrile, pulse ox 97% on 5 L nasal cannula. HEENT: Atraumatic, normocephalic. Neck is supple. No JVD. CVS: S1, S2 heard. No murmurs, no gallop. LUNGS: Bilateral air entry is present, prolonged expiratory phase. Minimal expiratory wheezing. Nonlabored breathing. ABDOMEN: Soft, nontender. Bowel sounds present. MANAGER GIFT: Awake, alert and oriented times three. No focal deficits. EXTREMITIES: No edema. Pulses are palpable bilaterally. No clubbing or cyanosis. PSYCHIATRIC: Cooperative. LABORATORY DATA: WBC 11.7, hemoglobin of 16.1, platelets 216, INR 1.1. D-dimer 0.60. Sodium 141, potassium 4.1, chloride 102, bicarb is 23, BUN 9, creatinine 0.8, blood sugar is 222 and CPK level is 1120, initial troponin is 5.7 and went up to 132, LDL 117. HBA1c 8.5. Blood sugar is around 229. IMPRESSION: 1. Acute non-ST elevated myocardial infarction, status post cardiac catheterization stent placement to the left anterior descending coronary artery. 2. Ischemic cardiomyopathy, ejection fraction 20-25%. 3. New onset diabetes mellitus, HBA1c of 8.5. 4. Suspected chronic obstructive pulmonary disease and left lower lobe atelectasis. Currently requiring O2 on 2 liters nasal cannula. 5. History of nicotine addiction. 3 to 4 packs per day. 6. Hyperlipidemia. LDL 117. DISCUSSION AND PLAN: Patient will be continued on aspirin and atorvastatin. Patient also had IV Solu-Medrol and continue the breathing treatments and continue with the antibiotics for tracheobronchitis and follow up closely. He will be started on Lantus 10 units q.h.s. and continue sliding scale and follow up closely. Further recommendations based on the clinical course. Patient will be continued on Effient as well.
[2016-12-26 21:46] LABS: Glucose,Whole Blood 311 mg/dL (75-99)
[2016-12-26] MEDS: ATORVASTATIN 80 MG TAB PO SCH (23:36)
[2016-12-26] MEDS: INSULIN GLARGINE 100 UNIT/ML 10 ML VIAL SQ SCH (23:44)
[2016-12-27] MEDS: IPRATROPIUM-ALBUTEROL 3 ML NEB INHALATION SCH ×5 (06:29→18:38)
[2016-12-27 06:33] LABS: Glucose,Whole Blood 203 mg/dL (75-99)
[2016-12-27] MEDS: CARVEDILOL 3.125 MG TAB PO SCH ×2 (06:51→18:16)
[2016-12-27] MEDS: INSULIN LISPRO (humaLOG) 300 UNIT/3 ML VIAL SQ SCH ×4 (06:51→21:31)
[2016-12-27] MEDS: methylPREDNISolone SOD SUCCI 40 MG/ML 1 ML VIAL IV SCH ×2 (08:46→16:26)
[2016-12-27] MEDS: AZITHROMYCIN 500 MG TAB PO SCH (08:47)
[2016-12-27] MEDS: PRASUGREL 10 MG TAB PO SCH (08:47)
[2016-12-27] MEDS: FUROSEMIDE 20 MG TAB PO SCH ×2 (08:47→20:17)
[2016-12-27] MEDS: SPIRONOLACTONE 25 MG TAB PO SCH (08:47)
[2016-12-27] MEDS: ASPIRIN 325 MG TAB PO SCH (08:47)
--- NOTE | 2016-12-27 10:56 | PN ---
Daniel is a 66-year-old gentleman who is admitted to hospital with non-ST segment elevation TN, underwent cardiac catheterization and angioplasty of LAD. He has severe LV systolic dysfunction with an ejection fraction of 20% to 25%, feeling well and is free of symptoms. On exam, comfortable at rest. Vital signs are stable. There is no jugular venous distention. Carotid upstroke is normal. There is no bruit. Chest exam reveals good air entry bilaterally. Heart exam reveals first and second heart sounds. No gallop. Exam of extremities did not reveal edema. Peripheral pulses are felt. Peak troponin is 76. Reviewed echo findings. The patient is on the appropriate medical therapy including aspirin, Lipitor, Coreg, lisinopril and Effient along with the Aldactone. ASSESSMENT: 1. Acute anterior wall myocardial infarction. 2. Ischemic cardiomyopathy. PLAN: The patient is doing well. Continue with current medical therapy, ambulate him and hopefully home tomorrow evening or on .
[2016-12-27 12:12] LABS: Glucose,Whole Blood 240 mg/dL (75-99)
--- NOTE | 2016-12-27 13:16 | P.PN ---
Subjective This is a pleasant 66-year-old white male, smoker, presented to the hospital yesterday with 1 week history of cough, symptoms of URI and cold-like symptoms, and he was having significant exertional right-sided chest pain off and on. Pain was described as squeezing sensation, and upon arrival to the ER he was more concerned about his pain and that his URI symptoms. EKG upon evaluation showed sinus rhythm with evidence of right bundle branch block pattern and ST elevation noted in 1 [address] depression in the inferior leads. Cardiac enzymes were noted to be elevated including positive CPK and positive troponins. His pain was relieved with sublingual nitroglycerin. Patient was seen by cardiology on consultation, and he underwent cardiac catheterization which showed significant disease involving the LAD. Stenting of the LAD was done, patient was transferred back to the ICU, he was complaining of shortness of breath, but his chest x-ray showed no evidence of active disease. His ejection fraction is found to be at 20-25%. He is seen again today 12/27/2016 in follow-up. He is awake and alert in no acute distress. He denies any shortness of breath, cough or congestion. No chest pain, palpitations, lightheadedness or dizziness. He's been afebrile, maintaining good O2 saturations in the upper 90s on room air. No pulmonary complaints. He is up ambulating in the room without any discomfort. Objective - Vital Signs Vital signs: Vital Signs Temp 97.0 F L 12/27/16 08:30 Pulse 92 12/27/16 12:48 Resp 18 12/27/16 08:30 BP 100/61 12/27/16 08:30 Pulse Ox 96 12/27/16 08:30 Intake & Output 12/26/16 12/27/16 12/27/16 18:59 06:59 18:59 Intake Total 695 275 Output Total 340 500 Balance 355 -500 275 Weight 95.6 kg Intake: IV 20 0.9 at KVO 20 Intake, IV Titration 425 Amount Sodium Chloride 0.9% 1, 375 000 ml @ 50 mls/hr IV . Q20H [facility] Rx#:[id number] cefTRIAXone 1,000 mg In 50 Sodium Chloride 0.9% 50 ml @ 100 mls/hr IVPB Q24HR@1200 [facility] Rx#: [id number] Oral 250 275 Output: Urine 340 500 Other: Voiding Method Urinal Urinal - Exam GENERAL EXAM: Alert, active, comfortable in no apparent distress. HEAD: Normocephalic. EYES: Normal reaction of pupils, equal size. NOSE: Clear with pink turbinates. THROAT: No erythema or exudates. NECK: No masses, no JVD. CHEST: No chest wall deformity. LUNGS: Equal air entry with no crackles, wheeze, rhonchi or dullness. CVS: S1 and S2 normal with an audible murmur, regular rhythm. ABDOMEN: No hepatosplenomegaly, normal bowel sounds, no guarding or rigidity. SPINE: No scoliosis or deformity SKIN: No rashes CENTRAL NERVOUS SYSTEM: No focal deficits, tone is normal in all 4 extremities. Extremities: There is no significant peripheral edema. No clubbing, no cyanosis. Peripheral pulses are intact. - Labs CBC & Chem 7: 12/25/16 18:55 12/26/16 05:56 Labs: Abnormal Lab Results - Last 24 Hours (Table) 12/26/16 12/26/16 12/26/16 Range/Units 05:56 16:44 16:46 POC Glucose (mg/dL) 301 H 303 H (75-99) mg/dL Hemoglobin A1c 8.5 H (4.2-6.1) % 12/26/16 12/27/16 12/27/16 Range/Units 21:45 06:32 11:59 POC Glucose (mg/dL) 311 H 203 H 240 H (75-99) mg/dL Hemoglobin A1c (4.2-6.1) % Assessment and Plan Plan: Impression: #1 Acute anterior wall myocardial infarction, status post stenting to the LAD. #2 Ischemic cardiomyopathy with estimated ejection fraction 20-25%. #3 History of chronic tobacco dependence for approximately 40 years at 3-4 packs per day. He did quit 4 years ago. #4 Chronic obstructive pulmonary disease suspected based on history of tobacco dependence and left lower lobe atelectasis without clear indication of pneumonia. Plan: The patient was seen and evaluated by Dr. Khan. He is stable from the pulmonary and critical care standpoint. We'll continue with his current medications. We'll increase his activity as tolerated. He would benefit from outpatient full pulmonary function testing to evaluate the severity of his suspected COPD and make recommendations for her maintenance medications. We'll continue to follow and make further recommendations based on his clinical status.
[2016-12-27 14:43] VITALS: BMI 27.0
--- NOTE | 2016-12-27 16:38 | P.PN ---
Subjective 66-year-old gentleman is admitted to the hospital with complains of chest pain. Patient was taken to the label sewer but the diagnosis of acute myocardial infarction. Patient underwent a successful PCI/PTCA to the left anterior descending artery. Patient's catheterization was done via right femoral artery approach. Currently denies any chest pain, difficulty breathing, nausea, vomiting, diarrhea. Objective - Vital Signs Vital signs: Vital Signs Temp 97.1 F L 12/27/16 12:00 Pulse 92 12/27/16 12:48 Resp 18 12/27/16 12:00 BP 111/74 12/27/16 12:00 Pulse Ox 96 12/27/16 12:00 Intake & Output 12/26/16 12/27/16 12/27/16 18:59 06:59 18:59 Intake Total 695 275 Output Total 340 500 Balance 355 -500 275 Weight 95.6 kg 95.6 kg Intake: IV 20 0.9 at KVO 20 Intake, IV Titration 425 Amount Sodium Chloride 0.9% 1, 375 000 ml @ 50 mls/hr IV . Q20H [facility] Rx#:[id number] cefTRIAXone 1,000 mg In 50 Sodium Chloride 0.9% 50 ml @ 100 mls/hr IVPB Q24HR@1200 [facility] Rx#: [id number] Oral 250 275 Output: Urine 340 500 Other: Voiding Method Urinal Urinal - Exam Physical exam Gen. appearance oriented 3 in no distress Neck is supple no JVD Lungs good air entry clear to auscultation no rhonchi or wheezing Heart S1-S2 heard regular rate and rhythm no murmurs appreciated Abdomen is soft nontender no organomegaly bowel sounds are intact Neurologically cranial nerves II-12 grossly intact no focal motor or sensory deficits noted Skin no abnormalities appreciated - Labs CBC & Chem 7: 12/25/16 18:55 12/26/16 05:56 Labs: Abnormal Lab Results - Last 24 Hours (Table) 12/26/16 12/26/16 12/26/16 Range/Units 16:44 16:46 21:45 POC Glucose (mg/dL) 301 H 303 H 311 H (75-99) mg/dL 12/27/16 12/27/16 Range/Units 06:32 11:59 POC Glucose (mg/dL) 203 H 240 H (75-99) mg/dL Assessment and Plan Plan: #1 acute anterior wall myocardial infarction status post PCI/PTCA to LAD #2 ischemic cardio myopathy that is stable #3 ongoing tobacco use #4 COPD Plan Dual antiplatelet therapy is to be continued. Smoking cessation is regular. Patient is to follow-up with pulmonology for outpatient PFTs. Beta kimberley and JHONATAN inhibitor's are to be continued. Patient will likely be monitored for another 24 hours to prevent any cardiac dysrhythmias. Likely be discharged thereafter.
[2016-12-27 16:52] LABS: Glucose,Whole Blood 239 mg/dL (75-99)
[2016-12-27] MEDS ORDERED: IPRATROPIUM-ALBUTEROL 3 ML NEB INHALATION PRN (18:39)
[2016-12-27] MEDS: ATORVASTATIN 80 MG TAB PO SCH (20:17)
[2016-12-27] MEDS: LISINOPRIL 5 MG TAB PO SCH (20:17)
[2016-12-27 21:08] LABS: Glucose,Whole Blood 238 mg/dL (75-99)
[2016-12-27] MEDS: INSULIN GLARGINE 100 UNIT/ML 10 ML VIAL SQ SCH (21:30)
[2016-12-28] MEDS: methylPREDNISolone SOD SUCCI 40 MG/ML 1 ML VIAL IV SCH ×2 (00:28→08:21)
[2016-12-28 06:42] LABS: Glucose,Whole Blood 223 mg/dL (75-99)
[2016-12-28] MEDS: INSULIN LISPRO (humaLOG) 300 UNIT/3 ML VIAL SQ SCH ×2 (07:44→12:24)
[2016-12-28] MEDS: CARVEDILOL 3.125 MG TAB PO SCH (07:44)
[2016-12-28] MEDS: FUROSEMIDE 20 MG TAB PO SCH (08:21)
[2016-12-28] MEDS: AZITHROMYCIN 500 MG TAB PO SCH (08:21)
[2016-12-28] MEDS: ASPIRIN 325 MG TAB PO SCH (08:21)
[2016-12-28] MEDS: PRASUGREL 10 MG TAB PO SCH (08:21)
[2016-12-28] MEDS: SPIRONOLACTONE 25 MG TAB PO SCH (08:21)
--- NOTE | 2016-12-28 12:02 | PN ---
Daniel is a 66-year-old gentleman who is admitted to hospital with acute myocardial infarction and underwent cardiac catheterization and angioplasty of LAD. He is doing well and is free of symptoms. Denies chest pain or difficulty in breathing. On exam, comfortable at rest. Vital signs are stable. There is no jugular venous distention. Chest exam reveals good air entry bilaterally. Heart exam reveals first and second heart sounds. No gallop. ABDOMEN: Soft. Exam of the extremities did not reveal any edema. Peripheral pulses are palpable. Labs show that his labs were reviewed. MEDICATIONS: He is currently on: 1. Aspirin. 2. Lipitor. 3. Coreg 3.125 b.i.d. 4. Effient for which he does not have insurance coverage. 5. He is on Aldactone and 6. Plavix which he is going to continue. I gave him a prescription for Plavix. ASSESSMENT: 1. Acute myocardial infarction, catheterization and angioplasty of left anterior descending coronary artery. 2. Ischemic cardiomyopathy. PLAN: The patient is doing better. He will continue with his current medications and stable to be discharged home and outpatient follow-up arranged with Dr. Tony.
[2016-12-28 12:05] LABS: Glucose,Whole Blood 256 mg/dL (75-99)
--- NOTE | 2016-12-28 12:51 | P.PN ---
Subjective Principal diagnosis: Acute anterior myocardial infarction This is a pleasant 66-year-old white male, smoker, presented to the hospital yesterday with 1 week history of cough, symptoms of URI and cold-like symptoms, and he was having significant exertional right-sided chest pain off and on. Pain was described as squeezing sensation, and upon arrival to the ER he was more concerned about his pain and that his URI symptoms. EKG upon evaluation showed sinus rhythm with evidence of right bundle branch block pattern and ST elevation noted in [address] depression in the inferior leads. Cardiac enzymes were noted to be elevated including positive CPK and positive troponins. His pain was relieved with sublingual nitroglycerin. Patient was seen by cardiology on consultation, and he underwent cardiac catheterization which showed significant disease involving the LAD. Stenting of the LAD was done, patient was transferred back to the ICU, he was complaining of shortness of breath, but his chest x-ray showed no evidence of active disease. His ejection fraction is found to be at 20-25%. He is seen again today 12/27/2016 in follow-up. He is awake and alert in no acute distress. He denies any shortness of breath, cough or congestion. No chest pain, palpitations, lightheadedness or dizziness. He's been afebrile, maintaining good O2 saturations in the upper 90s on room air. No pulmonary complaints. He is up ambulating in the room without any discomfort. Seen today on 12/28/2016, patient is doing well, relatively asymptomatic, no cough no wheezing no shortness of breath and no chest pain. Discharge planning is in progress on this patient. Objective - Vital Signs Vital signs: Vital Signs Temp 96.9 F L 12/28/16 08:10 Pulse 83 12/28/16 08:10 Resp 20 12/28/16 08:10 BP 115/73 12/28/16 08:10 Pulse Ox 97 12/28/16 08:10 Intake & Output 12/27/16 12/28/16 12/28/16 18:59 06:59 18:59 Intake Total 475 240 200 Output Total 800 Balance 475 -560 200 Weight 95.6 kg 95.3 kg Intake: IV 100 0.9 at KVO 100 Intake, IV Titration 100 Amount cefTRIAXone 1,000 mg In 100 Sodium Chloride 0.9% 50 ml @ 100 mls/hr IVPB Q24HR@1200 [facility] Rx#: [id number] Oral 275 240 200 Output: Urine 800 Other: Voiding Method Urinal - Exam ENERAL EXAM: Alert, active, comfortable in no apparent distress. HEAD: Normocephalic. EYES: Normal reaction of pupils, equal size. NOSE: Clear with pink turbinates. THROAT: No erythema or exudates. NECK: No masses, no JVD. CHEST: No chest wall deformity. LUNGS: Equal air entry with no crackles, wheeze, rhonchi or dullness. CVS: S1 and S2 normal with an audible murmur, regular rhythm. ABDOMEN: No hepatosplenomegaly, normal bowel sounds, no guarding or rigidity. SPINE: No scoliosis or deformity SKIN: No rashes CENTRAL NERVOUS SYSTEM: No focal deficits, tone is normal in all 4 extremities. Extremities: There is no significant peripheral edema. No clubbing, no cyanosis. Peripheral pulses are intact. - Labs CBC & Chem 7: 12/25/16 18:55 12/26/16 05:56 Labs: Abnormal Lab Results - Last 24 Hours (Table) 12/27/16 12/27/16 12/28/16 Range/Units 16:47 21:08 06:41 POC Glucose (mg/dL) 239 H 238 H 223 H (75-99) mg/dL 12/28/16 Range/Units 11:55 POC Glucose (mg/dL) 256 H (75-99) mg/dL Assessment and Plan Plan: Impression: 1 acute non-ST elevation myocardial infarction and ischemic cardiomyopathy as noted on the cardiac catheterization report. 2 status post stenting of the LAD, postoperative day ##3. 3 ischemic cardiomyopathy and severe LV dysfunction with ejection fraction of 20 -25% 4 suspect some component of COPD and left lower lobe atelectasis, strongly doubt pneumonia. Recommendation: Agree with the present treatment plan including bronchodilators , aspirin and Lipitor Corag Lasix Zestril Aldactone,effient, and antibiotics were given empirically. Agree with discharge planning, patient is to follow-up with me in the office in the next 5-10 days, and a PFT will be done to evaluate the severity of his COPD. Time with Patient: Less than 30
[2016-12-28 14:33] VITALS: RESP 18
[2016-12-28 16:36] VITALS: BP 117/70; PULSE 81; TEMP 97.6
--- NOTE | 2016-12-28 17:04 | P.DS ---
Providers Date of admission: 12/25/16 20:21 Attending physician: Zoraida Zurita Consults: 12/25/16 22:12 Consult Physician Routine Consulting Provider: [facility] Consult Reason/Comments: Post Interventional patient Do you want consulting provider notified?: Already Contacted 12/26/16 08:50 Consult Physician Urgent Consulting Provider: Jaqui Khan Reason/Comments: shortness of breath, cough Do you want consulting provider notified?: Yes Primary care physician: Stated None Hospital Course: 66-year-old gentleman is admitted to the hospital with complains of chest pain. Patient was taken to the matlab developer but the diagnosis of acute myocardial infarction. Patient underwent a successful PCI/PTCA to the left anterior descending artery. Patient's catheterization was done via right femoral artery approach. Currently denies any chest pain, difficulty breathing, nausea, vomiting, diarrhea. He was noted to have a hemoglobin A1c greater than 8. - Exam Physical exam Gen. appearance oriented 3 in no distress Neck is supple no JVD Lungs good air entry clear to auscultation no rhonchi or wheezing Heart S1-S2 heard regular rate and rhythm no murmurs appreciated Abdomen is soft nontender no organomegaly bowel sounds are intact Neurologically cranial nerves II-12 grossly intact no focal motor or sensory deficits noted Skin no abnormalities appreciated Assessment and Plan Plan: #1 acute anterior wall myocardial infarction status post PCI/PTCA to LAD #2 ischemic cardio myopathy that is stable #3 ongoing tobacco use #4 COPD #5 uncontrolled diabetes, hyperglycemia without diabetic coma Plan Patient was discharged home on JHONATAN inhibitor or beta kibmerley dual antiplatelet therapy and metformin 850 mg by mouth twice a day. Patient is to follow-up with Dr. Denis Perez Recommended the patient to check fasting glucose levels for the next 2 weeks prior to making changes to the metformin therapy. A repeat kidney function is also recommended to be done. Patient Condition at Discharge: Serious Plan - Discharge Summary New Discharge Prescriptions: Albuterol Inhaler [Ventolin Hfa Inhaler] 1 - 2 puff INHALATION Q6HR PRN #1 inhaler PRN Reason: Dyspnea Aspirin [Adult Low Dose Aspirin EC] 81 mg PO DAILY #30 tablet. Atorvastatin [Lipitor] 80 mg PO HS #30 tab Budesonide/Formoterol Fumarate [Symbicort 80-4.5 Mcg Inhaler] 2 puff INHALATION BID #1 inhaler Carvedilol [Coreg] 3.125 mg PO BID-W/MEALS #60 tab Clopidogrel [Plavix] 75 mg PO DAILY #30 tab Furosemide [Lasix] 20 mg PO BID #60 tab Lisinopril [Zestril] 5 mg PO HS #60 tab Spironolactone [Aldactone] 25 mg PO DAILY #30 tab metFORMIN HCL [Glucophage] 850 mg PO BID #60 tab Discharge Medication List Albuterol Sulfate [Accuneb] 0 mg INHALATION 12/25/16 [History] HYDROcodone/APAP 7.5-325MG [[place] 7.5-325] 1 tab PO QID PRN 12/25/16 [History] Albuterol Inhaler [Ventolin Hfa Inhaler] 1 - 2 puff INHALATION Q6HR PRN #1 inhaler 12/28/16 [Rx] Aspirin [Adult Low Dose Aspirin EC] 81 mg PO DAILY #30 tablet. 12/28/16 [Rx] Atorvastatin [Lipitor] 80 mg PO HS #30 tab 12/28/16 [Rx] Budesonide/Formoterol Fumarate [Symbicort 80-4.5 Mcg Inhaler] 2 puff INHALATION BID #1 inhaler 12/28/16 [Rx] Carvedilol [Coreg] 3.125 mg PO BID-W/MEALS #60 tab 12/28/16 [Rx] Clopidogrel [Plavix] 75 mg PO DAILY #30 tab 12/28/16 [Rx] Furosemide [Lasix] 20 mg PO BID #60 tab 12/28/16 [Rx] Lisinopril [Zestril] 5 mg PO HS #60 tab 12/28/16 [Rx] Spironolactone [Aldactone] 25 mg PO DAILY #30 tab 12/28/16 [Rx] metFORMIN HCL [Glucophage] 850 mg PO BID #60 tab 12/28/16 [Rx] Follow up Appointment(s)/Referral(s): Alejandra Dumont MD [STAFF PHYSICIAN] - 01/04/17 10:45 am None,Stated [Primary Care Provider] - 1-2 days Della Tony MD [STAFF PHYSICIAN] - 01/05/17 9:45 am Patient Instructions/Handouts: After Heart Catheterization - Finishing Supervisor, Left Heart Catheterization (DC) Activity/Diet/Wound Care/Special Instructions: Glucometer and diabetic testing supplies - [facility] - [phone] - to be delivered to room prior to discharge Discharge Disposition: HOME SELF-CARE
[2016-12-29] MEDS ORDERED: CLOPIDOGREL 75 MG TAB PO SCH (09:00)
== END 2016-12-28 17:28 | disposition home or self-care (01) | DRG 247 ==
LOC: EC 18:05 → 6SEL 20:21 → 6ICU 22:10 → 6SEL 12-26 19:34
PROVIDERS: ADMIT Internal Medicine; ATTEND Internal Medicine
PROC: 4A023N7 Measurement of Cardiac Sampling and Pressure, Left Heart, Percutaneous Approach (ICD-10-PCS; principal; 2016-12-25 20:39)
PROC: B2111ZZ Fluoroscopy of Multiple Coronary Arteries using Low Osmolar Contrast (ICD-10-PCS; principal; 2016-12-25 20:39)
PROC: 027034Z Dilation of Coronary Artery, One Artery with Drug-eluting Intraluminal Device, Percutaneous Approach (ICD-10-PCS; 2016-12-25 20:39)
DX: I21.02 ST elevation (STEMI) myocardial infarction involving left anterior descending coronary artery (principal); I11.0 Hypertensive heart disease with heart failure; I50.9 Heart failure, unspecified; J44.9 Chronic obstructive pulmonary disease, unspecified; I45.2 Bifascicular block; J98.11 Atelectasis; E11.65 Type 2 diabetes mellitus with hyperglycemia; E78.5 Hyperlipidemia, unspecified; I25.5 Ischemic cardiomyopathy; J45.909 Unspecified asthma, uncomplicated; Z72.0 Tobacco use; I25.2 Old myocardial infarction; Z79.82 Long term (current) use of aspirin; Z91.14 Patient's other noncompliance with medication regimen; Z79.899 Other long term (current) drug therapy; Z88.6 Allergy status to analgesic agent
CPT/HCPCS: 36415; 71010; 71020; 80048; 80053; 80061; 82550; 82553; 83036; 83735; 83880; 84484; 85025; 85379; 85610; 85730; 87502; 93005; 93306; 93458; 94640; 94760; 96361; 96365; 96368; 96375; 96376; 99291

== ENCOUNTER 2019-01-24 19:26 | Emergency (ER) | payer MEDICARE ==
[2019-01-24] MEDS ORDERED: IPRATROPIUM-ALBUTEROL 3 ML NEB INHALATION STA (19:48)
[2019-01-24] MEDS ORDERED: methylPREDNISolone SOD SUCCI 125 MG/2 ML VIAL IV STA (19:48)
[2019-01-24] MEDS ORDERED: AZITHROMYCIN 500 MG in SODIUM CHLORIDE 0.9% 250 ML IVPB STA (19:48)
[2019-01-24] MEDS ORDERED: ASPIRIN 81 MG PO STA (19:53)
--- NOTE | 2019-01-24 19:54 | ED ---
General Adult HPI - General Chief complaint: Shortness of Breath Stated complaint: cough, fluid on his lungs Time Seen by Provider: 01/24/19 19:38 Source: patient Mode of arrival: wheelchair Limitations: no limitations - History of Present Illness Initial comments: A presents with a chief complaint of cough, congestion, and shortness of breath for the last 4 days. Patient cannot identify inciting incident. There are no aggravating or alleviating factors. Timing is constant. Patient states that he has been using his rescue inhaler more than normal. The patient states that he does not have a productive cough however when he uses breathing treatments he states that he gags. He states that he does not know if it's a breathing treatment or phlegm. He has had subjective chills but no measured fever. Patient is a former smoker, he stopped 6 years ago. - Related Data Previous Rx's Medication Instructions Recorded Albuterol Inhaler [Ventolin Hfa 1 - 2 puff INHALATION Q6HR PRN #1 12/28/16 Inhaler] inhaler Aspirin [Adult Low Dose Aspirin EC] 81 mg PO DAILY #30 tablet. 12/28/16 Atorvastatin [Lipitor] 80 mg PO HS #30 tab 12/28/16 Carvedilol [Coreg] 3.125 mg PO BID-W/MEALS #60 tab 12/28/16 Clopidogrel [Plavix] 75 mg PO DAILY #30 tab 12/28/16 Furosemide [Lasix] 20 mg PO BID #60 tab 12/28/16 Lisinopril [Zestril] 5 mg PO HS #60 tab 12/28/16 Spironolactone [Aldactone] 25 mg PO DAILY #30 tab 12/28/16 metFORMIN HCL [Glucophage] 850 mg PO BID #60 tab 12/28/16 Azithromycin [Zithromax Z-pack] 250 mg PO DAILY #4 tab 01/24/19 predniSONE [Deltasone] 60 mg PO DAILY #12 tablet 01/24/19 Allergies Allergy/AdvReac Type Severity Reaction Status Date / Time ibuprofen AdvReac Mild Abdominal Verified 01/24/19 20:41 Pain Review of Systems ROS Statement: Those systems with pertinent positive or pertinent negative responses have been documented in the HPI. ROS Other: All systems not noted in ROS Statement are negative. Constitutional: Reports: chills Respiratory: Reports: cough, dyspnea Cardiovascular: Reports: dyspnea on exertion Past Medical History Past Medical History: Asthma, Diabetes Mellitus, Hypertension, Myocardial Infarction ([place]) Additional Past Medical History / Comment(s): Rheumatic fever. [place] 2006, 2011. stopped taking prescribed medications 4-5 years ago Last Myocardial Infarction Date:: 12/25/16 History of Any Multi-Drug Resistant Organisms: None Reported Past Surgical History: Heart Catheterization With Stent Past Anesthesia/Blood Transfusion Reactions: No Reported Reaction Date of Last Stent Placement:: 12/25/16 Past Psychological History: No Psychological Hx Reported Smoking Status: Former smoker Past Alcohol Use History: None Reported Past Drug Use History: None Reported General Exam Limitations: no limitations General appearance: alert, in no apparent distress Head exam: Present: atraumatic, normocephalic Eye exam: Present: normal appearance ENT exam: Present: normal exam Neck exam: Present: normal inspection Respiratory exam: Present: wheezes. Absent: respiratory distress Cardiovascular Exam: Present: regular rate, normal rhythm GI/Abdominal exam: Present: soft. Absent: distended, tenderness Rectal exam: Present: deferred Extremities exam: Present: normal inspection Back exam: Present: normal inspection Neurological exam: Present: alert, oriented X3 Psychiatric exam: Present: normal affect, normal mood Skin exam: Present: warm, dry, intact Course Vital Signs 01/24/19 01/24/19 01/24/19 19:31 19:51 20:00 Temperature 98.5 F Pulse Rate 114 H 108 H Respiratory 28 H Rate Blood Pressure 149/87 O2 Sat by Pulse 92 L 89 L 88 L Oximetry 01/24/19 01/24/19 01/24/19 20:04 20:10 20:20 Temperature Pulse Rate 101 H 101 H Respiratory 20 Rate Blood Pressure 124/93 124/93 O2 Sat by Pulse 91 L 94 L Oximetry 01/24/19 01/24/19 01/24/19 20:25 20:30 20:40 Temperature Pulse Rate 104 H 101 H 101 H Respiratory Rate Blood Pressure 124/93 102/76 O2 Sat by Pulse 98 99 Oximetry 01/24/19 01/24/19 01/24/19 20:44 20:50 21:00 Temperature Pulse Rate 108 H 107 H Respiratory Rate Blood Pressure 102/76 102/76 O2 Sat by Pulse 95 Oximetry 01/24/19 01/24/19 01/24/19 21:10 21:20 21:30 Temperature Pulse Rate 103 H 99 105 H Respiratory Rate Blood Pressure 122/69 O2 Sat by Pulse 93 L 91 L 96 Oximetry Medical Decision Making - Medical Decision Making Patient presents with a chief complaint shortness of breath. On initial e valuation, vitals show tachycardia, tachypnea, and oxygen saturation 92%. The evaluated with EKG, chest x-ray, this pleasant including cardiac enzymes. He'll be given breathing treatments, steroids, and his first dose of azithromycin in the emergency department. EKG performed at 1957 shows sinus tachycardia with a right bundle branch block. Ventricular rate is 103. Segmented appear to be within normal limits. There are no acute signs of ischemia. 9:30 PM W evaluation of this patient is unremarkable. D-dimer is 0.55, age adjusted, patient is negative. I do not suspect PE. On reevaluation, patient states he feels very much improved after breathing treatments and steroids. Patient lucie keys suffering from a COPD exacerbation versus bronchitis. He was given azithromycin initially. At this time, patient is stable for discharge. He'll be prescribed azithromycin, prednisone, and albuterol inhaler. He was instructed to follow up with primary care mother 2 days, return to ED if symp toms worsen or change. Ambulatory pulse ox was 90% about significant increase in heart rate - Lab Data Result diagrams: 01/24/19 20:04 01/24/19 20:04 Lab Results 01/24/19 01/24/19 01/24/19 Range/Units 20:04 20:04 20:04 WBC 7.0 (3.8-10.6) k/uL RBC 5.61 (4.30-5.90) m/uL Hgb 16.0 (13.0-17.5) gm/dL Hct 48.6 (39.0-53.0) % MCV 86.5 (80.0-100.0) fL MCH 28.4 (25.0-35.0) pg MCHC 32.9 (31.0-37.0) g/dL RDW 14.1 (11.5-15.5) % Plt Count 156 (150-450) k/uL Neutrophils % 68 % Lymphocytes % 14 % Monocytes % 9 % Eosinophils % 6 % Basophils % 1 % Neutrophils # 4.7 (1.3-7.7) k/uL Lymphocytes # 1.0 (1.0-4.8) k/uL Monocytes # 0.7 (0-1.0) k/uL Eosinophils # 0.4 (0-0.7) k/uL Basophils # 0.1 (0-0.2) k/uL D-Dimer (<0.60) mg/L FEU Sodium 135 L (137-145) mmol/L Potassium 4.3 (3.5-5.1) mmol/L Chloride 100 (98-107) mmol/L Carbon Dioxide 22 (22-30) mmol/L Anion Gap 13 mmol/L BUN 17 (9-20) mg/dL Creatinine 1.04 (0.66-1.25) mg/dL Est GFR (CKD-EPI)AfAm 86 (>60 ml/min/1.73 sqM) Est GFR (CKD-EPI)NonAf 74 (>60 ml/min/1.73 sqM) Glucose 152 H (74-99) mg/dL Calcium 9.6 (8.4-10.2) mg/dL Magnesium 1.6 (1.6-2.3) mg/dL Total Bilirubin 1.2 (0.2-1.3) mg/dL AST 26 (17-59) U/L ALT 32 (21-72) U/L Alkaline Phosphatase 81 (38-126) U/L Troponin I <0.012 (0.000-0.034) ng/mL NT-Pro-B Natriuret Pep pg/mL Total Protein 7.7 (6.3-8.2) g/dL Albumin 4.6 (3.5-5.0) g/dL 01/24/19 01/24/19 Range/Units 20:04 20:04 WBC (3.8-10.6) k/uL RBC (4.30-5.90) m/uL Hgb (13.0-17.5) gm/dL Hct (39.0-53.0) % MCV (80.0-100.0) fL MCH (25.0-35.0) pg MCHC (31.0-37.0) g/dL RDW (11.5-15.5) % Plt Count (150-450) k/uL Neutrophils % % Lymphocytes % % Monocytes % % Eosinophils % % Basophils % % Neutrophils # (1.3-7.7) k/uL Lymphocytes # (1.0-4.8) k/uL Monocytes # (0-1.0) k/uL Eosinophils # (0-0.7) k/uL Basophils # (0-0.2) k/uL D-Dimer 0.55 (<0.60) mg/L FEU Sodium (137-145) mmol/L Potassium (3.5-5.1) mmol/L Chloride (98-107) mmol/L Carbon Dioxide (22-30) mmol/L Anion Gap mmol/L BUN (9-20) mg/dL Creatinine (0.66-1.25) mg/dL Est GFR (CKD-EPI)AfAm (>60 ml/min/1.73 sqM) Est GFR (CKD-EPI)NonAf (>60 ml/min/1.73 sqM) Glucose (74-99) mg/dL Calcium (8.4-10.2) mg/dL Magnesium (1.6-2.3) mg/dL Total Bilirubin (0.2-1.3) mg/dL AST (17-59) U/L ALT (21-72) U/L Alkaline Phosphatase (38-126) U/L Troponin I (0.000-0.034) ng/mL NT-Pro-B Natriuret Pep 517 pg/mL Total Protein (6.3-8.2) g/dL Albumin (3.5-5.0) g/dL Disposition Clinical Impression: COPD exacerbation, Bronchitis Disposition: HOME SELF-CARE Condition: Good Instructions (If sedation given, give patient instructions): Acute Bronchitis (ED) Prescriptions: predniSONE [Deltasone] 60 mg PO DAILY #12 tablet Azithromycin [Zithromax Z-pack] 250 mg PO DAILY #4 tab Is patient prescribed a controlled substance at d/c from ED?: No Referrals: Alejandra Dumont MD [Primary Care Provider] - 1-2 days
[2019-01-24 20:15] LABS: Basophils # (A) 0.1 k/uL (0-0.2); Basophils % (A) 1 %; Eosinophils # (A) 0.4 k/uL (0-0.7); Eosinophils % (A) 6 %; HCT 48.6 % (39.0-53.0); Lymphocytes % (A) 14 %; MCH 28.4 pg (25.0-35.0); MCHC 32.9 g/dL (31.0-37.0); MCV 86.5 fL (80.0-100.0); Mean Platelet Volume 7.2; Monocytes # (A) 0.7 k/uL (0-1.0); Monocytes % (A) 9 %; Neutrophils # (A) 4.7 k/uL (1.3-7.7); Neutrophils % (A) 68 %; Platelet Count 156 k/uL (150-450); RBC 5.61 m/uL (4.30-5.90); RDW 14.1 % (11.5-15.5)
[2019-01-24 20:27] LABS: Albumin 4.6 g/dL (3.5-5.0); Calcium 9.6 mg/dL (8.4-10.2); Magnesium 1.6 mg/dL (1.6-2.3); Potassium 4.3 mmol/L (3.5-5.1); Total Bilirubin 1.2 mg/dL (0.2-1.3); Total Protein 7.7 g/dL (6.3-8.2)
--- NOTE | 2019-01-24 21:33 | XR ---
EXAMINATION TYPE: XR chest 2V DATE OF EXAM: 01/24/2019 COMPARISON: 12/26/2016 HISTORY: Difficulty breathing TECHNIQUE: Frontal and lateral views of the chest are obtained. FINDINGS: There is no heart failure nor confluent pneumonic infiltrate. Heart size is normal. There are chest leads. Costophrenic angles are clear. IMPRESSION: No active cardiopulmonary disease. Normal heart. No change.
[2019-01-24 22:52] VITALS: BP 103/73; PULSE 95; RESP 18; TEMP 97.8
== END 2019-01-24 22:52 | disposition home or self-care (01) ==
LOC: EC 19:26
DX: J44.1 Chronic obstructive pulmonary disease with (acute) exacerbation (principal); R00.0 Tachycardia, unspecified; I45.10 Unspecified right bundle-branch block; I25.2 Old myocardial infarction; Z87.891 Personal history of nicotine dependence; Z88.6 Allergy status to analgesic agent; Z95.5 Presence of coronary angioplasty implant and graft
CPT/HCPCS: 36415; 94640; 93005; 85379; 83880; 80053; 83735; 84484; 85025; 87040; 71046; 99285; 96365; 96375; J2930; J0456

== ENCOUNTER → 2020-01-03 | Outpatient (CLI) | payer MEDICARE ==
--- NOTE | 2020-01-03 14:11 | US ---
EXAMINATION TYPE: US kidneys/renal and bladder DATE OF EXAM: 01/03/2020 COMPARISON: NONE CLINICAL HISTORY: R94.4 Abnormal kidney function study. Abnormal kidney function test. EXAM MEASUREMENTS: Right Kidney: 11.3 x 4.9 x 4.9 cm Left Kidney: 11.6 x 5.2 x 3.7 cm Right Kidney: No hydronephrosis or masses seen Left Kidney: No hydronephrosis or masses seen Bladder: wnl Bilateral Jets seen: Yes There is no evidence for hydronephrosis at this point in time. No nephrolithiasis is seen. No fatoumata s are identified. The urinary bladder is anechoic. Bilateral ureteral jets are seen. IMPRESSION: No hydronephrosis or nephrolithiasis. Unremarkable renal ultrasound.
== END | disposition home or self-care (01) ==
LOC: RADUSWWP 13:30
PROVIDERS: ATTEND Family Medicine
DX: R94.4 Abnormal results of kidney function studies (principal)
CPT/HCPCS: 76770

== ENCOUNTER 2021-05-11 02:08 | Emergency (ER) | payer MEDICARE ==
[2021-05-11 02:15] VITALS: TEMP 97.7
[2021-05-11] MEDS ORDERED: NITROGLYCERIN OINT 1 INCH/GM PACKET TOPICAL STA (02:19)
[2021-05-11] MEDS ORDERED: MORPHINE SULFATE 4 MG/ML SYRINGE IV STA (02:20)
[2021-05-11] MEDS ORDERED: NITROGLYCERIN SL TABS 0.4 MG TAB SUBLINGUAL STA (02:20)
[2021-05-11 02:35] LABS: Basophils # (A) 0.2 k/uL (0-0.2); Basophils % (A) 1 %; Eosinophils # (A) 2.4 k/uL (0-0.7); Eosinophils % (A) 17 %; HCT 48.3 % (39.0-53.0); HGB 15.5 gm/dL (13.0-17.5); Lymphocytes # (A) 4.7 k/uL (1.0-4.8); Lymphocytes % (A) 33 %; MCH 28.9 pg (25.0-35.0); MCHC 32.1 g/dL (31.0-37.0); Mean Platelet Volume 7.2; Monocytes # (A) 0.8 k/uL (0-1.0); Monocytes % (A) 5 %; Neutrophils % (A) 41 %; Platelet Count 216 k/uL (150-450); RBC 5.37 m/uL (4.30-5.90); RDW 15.3 % (11.5-15.5); WBC 14.4 k/uL (3.8-10.6)
--- NOTE | 2021-05-11 02:44 | XR ---
EXAMINATION TYPE: XR chest 1V portable DATE OF EXAM: 05/11/2021 COMPARISON: 01/24/2019 HISTORY: Short of breath TECHNIQUE: FINDINGS: There is no heart failure nor confluent pneumonic infiltrate. Costophrenic angles are fairl y clear. There are no hilar masses. Heart size is normal. IMPRESSION: No active cardiopulmonary disease. No change.
[2021-05-11 02:52] LABS: Partial Thromboplastin Time 23.4 sec (22.0-30.0); Prothrombin Time 10.9 sec (9.0-12.0)
[2021-05-11] MEDS ORDERED: methylPREDNISolone SOD SUCCI 125 MG/2 ML VIAL IV STA (02:53)
[2021-05-11 02:54] LABS: Albumin 4.3 g/dL (3.5-5.0); Calcium 9.1 mg/dL (8.4-10.2); Potassium 4.5 mmol/L (3.5-5.1); Total Bilirubin 0.5 mg/dL (0.2-1.3); Total Protein 6.9 g/dL (6.3-8.2)
[2021-05-11 02:56] LABS: D-Dimer 1.04 mg/L FEU (<0.60)
[2021-05-11 03:54] VITALS: RESP 20
--- NOTE | 2021-05-11 05:23 | ED ---
SOB HPI - General Chief Complaint: Shortness of Breath Stated Complaint: SOB Time Seen by Provider: 05/11/21 02:14 Source: patient, EMS Mode of arrival: EMS - Related Data Previous Rx's Medication Instructions Recorded Albuterol Inhaler (Mhu) [Ventolin 1 - 2 puff INHALATION Q6HR PRN #1 12/28/16 Hfa Inhaler] inhaler Aspirin [Adult Low Dose Aspirin EC] 81 mg PO DAILY #30 tablet. 12/28/16 Atorvastatin [Lipitor] 80 mg PO HS #30 tab 12/28/16 Clopidogrel [Plavix] 75 mg PO DAILY #30 tab 12/28/16 Furosemide [Lasix] 20 mg PO BID #60 tab 12/28/16 Spironolactone [Aldactone] 25 mg PO DAILY #30 tab 12/28/16 carvediloL [Coreg] 3.125 mg PO BID-W/MEALS #60 tab 12/28/16 lisinopriL [Zestril] 5 mg PO HS #60 tab 12/28/16 metFORMIN HCL [Glucophage] 850 mg PO BID #60 tab 12/28/16 Azithromycin [Zithromax Z-pack (6 250 mg PO DAILY #4 tab 01/24/19 tabs)] predniSONE [Deltasone] 60 mg PO DAILY #12 tablet 01/24/19 predniSONE 60 mg PO DAILY #30 tab 05/11/21 Allergies Allergy/AdvReac Type Severity Reaction Status Date / Time ibuprofen AdvReac Mild Abdominal Verified 01/24/19 20:41 Pain Review of Systems ROS Statement: Those systems with pertinent positive or pertinent negative responses have been documented in the HPI. ROS Other: All systems not noted in ROS Statement are negative. Past Medical History Past Medical History: Asthma, Diabetes Mellitus, Hypertension, Myocardial Infarction ([place]) Additional Past Medical History / Comment(s): Rheumatic fever. [place] 2006, 2011. stopped taking prescribed medications 4-5 years ago Last Myocardial Infarction Date:: 12/25/16 History of Any Multi-Drug Resistant Organisms: None Reported Past Surgical History: Heart Catheterization With Stent Past Anesthesia/Blood Transfusion Reactions: No Reported Reaction Date of Last Stent Placement:: 12/25/16 Past Psychological History: No Psychological Hx Reported Past Alcohol Use History: None Reported Past Drug Use History: None Reported Course Vital Signs 05/11/21 05/11/21 05/11/21 02:11 02:15 02:50 Temperature 97.7 F Pulse Rate 113 H 111 H Respiratory 32 H 32 H 25 H Rate Blood Pressure 131/91 103/71 O2 Sat by Pulse 98 98 Oximetry 05/11/21 03:53 Temperature Pulse Rate 95 Respiratory 20 Rate Blood Pressure 106/64 O2 Sat by Pulse 95 Oximetry Medical Decision Making - Lab Data Result diagrams: 05/11/21 02:23 05/11/21 02:23 Lab Results 05/11/21 05/11/21 05/11/21 Range/Units 02:23 02:23 02:23 WBC 14.4 H (3.8-10.6) k/uL RBC 5.37 (4.30-5.90) m/uL Hgb 15.5 (13.0-17.5) gm/dL Hct 48.3 (39.0-53.0) % MCV 90.0 (80.0-100.0) fL MCH 28.9 (25.0-35.0) pg MCHC 32.1 (31.0-37.0) g/dL RDW 15.3 (11.5-15.5) % Plt Count 216 (150-450) k/uL MPV 7.2 Neutrophils % 41 % Lymphocytes % 33 % Monocytes % 5 % Eosinophils % 17 % Basophils % 1 % Neutrophils # 6.0 (1.3-7.7) k/uL Lymphocytes # 4.7 (1.0-4.8) k/uL Monocytes # 0.8 (0-1.0) k/uL Eosinophils # 2.4 H (0-0.7) k/uL Basophils # 0.2 (0-0.2) k/uL PT 10.9 (9.0-12.0) sec INR 1.0 (<1.2) APTT 23.4 (22.0-30.0) sec D-Dimer 1.04 H (<0.60) mg/L FEU Sodium 141 (137-145) mmol/L Potassium 4.5 (3.5-5.1) mmol/L Chloride 104 (98-107) mmol/L Carbon Dioxide 27 (22-30) mmol/L Anion Gap 10 mmol/L BUN 26 H (9-20) mg/dL Creatinine 1.39 H (0.66-1.25) mg/dL Est GFR (CKD-EPI)AfAm 60 (>60 ml/min/1.73 sqM) Est GFR (CKD-EPI)NonAf 52 (>60 ml/min/1.73 sqM) Glucose 171 H (74-99) mg/dL Plasma Lactic Acid Adriano (0.7-2.0) mmol/L Calcium 9.1 (8.4-10.2) mg/dL Total Bilirubin 0.5 (0.2-1.3) mg/dL AST 23 (17-59) U/L ALT 13 (4-49) U/L Alkaline Phosphatase 112 (38-126) U/L Troponin I (0.000-0.034) ng/mL NT-Pro-B Natriuret Pep pg/mL Total Protein 6.9 (6.3-8.2) g/dL Albumin 4.3 (3.5-5.0) g/dL 05/11/21 05/11/21 05/11/21 Range/Units 02:23 02:23 02:23 WBC (3.8-10.6) k/uL RBC (4.30-5.90) m/uL Hgb (13.0-17.5) gm/dL Hct (39.0-53.0) % MCV (80.0-100.0) fL MCH (25.0-35.0) pg MCHC (31.0-37.0) g/dL RDW (11.5-15.5) % Plt Count (150-450) k/uL MPV Neutrophils % % Lymphocytes % % Monocytes % % Eosinophils % % Basophils % % Neutrophils # (1.3-7.7) k/uL Lymphocytes # (1.0-4.8) k/uL Monocytes # (0-1.0) k/uL Eosinophils # (0-0.7) k/uL Basophils # (0-0.2) k/uL PT (9.0-12.0) sec INR (<1.2) APTT (22.0-30.0) sec D-Dimer (<0.60) mg/L FEU Sodium (137-145) mmol/L Potassium (3.5-5.1) mmol/L Chloride (98-107) mmol/L Carbon Dioxide (22-30) mmol/L Anion Gap mmol/L BUN (9-20) mg/dL Creatinine (0.66-1.25) mg/dL Est GFR (CKD-EPI)AfAm (>60 ml/min/1.73 sqM) Est GFR (CKD-EPI)NonAf (>60 ml/min/1.73 sqM) Glucose (74-99) mg/dL Plasma Lactic Acid Adriano 1.5 (0.7-2.0) mmol/L Calcium (8.4-10.2) mg/dL Total Bilirubin (0.2-1.3) mg/dL AST (17-59) U/L ALT (4-49) U/L Alkaline Phosphatase (38-126) U/L Troponin I <0.012 (0.000-0.034) ng/mL NT-Pro-B Natriuret Pep 140 pg/mL Total Protein (6.3-8.2) g/dL Albumin (3.5-5.0) g/dL Disposition Clinical Impression: Asthma with acute exacerbation Disposition: HOME SELF-CARE Condition: Good Instructions (If sedation given, give patient instructions): Asthma (ED) Prescriptions: predniSONE 60 mg PO DAILY #30 tab Is patient prescribed a controlled substance at d/c from ED?: No Referrals: Alejandra Dumont MD [Primary Care Provider] - 1-2 days
[2021-05-11 05:28] VITALS: BP 106/72; PULSE 92
== END 2021-05-11 05:37 | disposition home or self-care (01) ==
LOC: EC 02:08
DX: J45.901 Unspecified asthma with (acute) exacerbation (principal); E11.9 Type 2 diabetes mellitus without complications; I10 Essential (primary) hypertension; I25.2 Old myocardial infarction; Z79.84 Long term (current) use of oral hypoglycemic drugs; Z79.51 Long term (current) use of inhaled steroids
CPT/HCPCS: 36415; 94660; 93005; 85379; 83880; 80053; 83605; 84484; 85025; 85610; 85730; 71045; 99285; 96374; 96375; J2270; J2930

== ENCOUNTER 2021-06-25 11:14 | Emergency (ER) | payer MEDICARE ==
[2021-06-25 11:22] VITALS: TEMP 97.6
--- NOTE | 2021-06-25 11:29 | ED ---
General Adult HPI - General Chief complaint: Shortness of Breath Stated complaint: asthma Time Seen by Provider: 06/25/21 11:15 Source: patient, family, RN notes reviewed Mode of arrival: wheelchair Limitations: no limitations - History of Present Illness Initial comments: Patient is a pleasant 70-year-old male presenting to the emergency department with concern for his asthma. Patient has had minimal symptoms of past couple of days, worse this morning. Patient did take a double nebulizer treatment at home. Patient does have cough, nonproductive. Patient does feel there is some chest congestion. No fevers. No leg pain or leg swelling. Patient is a former smoker. Patient did have covid 4 months ago. - Related Data Home Medications Medication Instructions Recorded Confirmed Albuterol Nebulized [Ventolin 2.5 mg INHALATION RT-Q4H PRN 06/25/21 06/25/21 Nebulized] Allopurinol [Zyloprim] 100 mg PO DAILY 06/25/21 06/25/21 Cholecalciferol [Vitamin D3 (25 25 mcg PO DAILY 06/25/21 06/25/21 Mcg = 1000 Iu)] Furosemide [Lasix] 20 mg PO DAILY 06/25/21 06/25/21 Glimepiride [Amaryl] 1 mg PO AC-BRKFST 06/25/21 06/25/21 Spironolactone [Aldactone] 12.5 mg PO DAILY 06/25/21 06/25/21 Previous Rx's Medication Instructions Recorded Aspirin [Adult Low Dose Aspirin EC] 81 mg PO DAILY #30 tablet. 12/28/16 Atorvastatin [Lipitor] 80 mg PO HS #30 tab 12/28/16 carvediloL [Coreg] 3.125 mg PO BID-W/MEALS #60 tab 12/28/16 lisinopriL [Zestril] 5 mg PO HS #60 tab 12/28/16 Azithromycin [Zithromax Z-pack (6 250 mg PO DIRECTED #6 tab 06/25/21 tabs)] predniSONE [Deltasone] 20 mg PO BID #10 tab 06/25/21 Allergies Allergy/AdvReac Type Severity Reaction Status Date / Time ibuprofen AdvReac Mild Abdominal Verified 06/25/21 12:42 Pain Review of Systems ROS Statement: Those systems with pertinent positive or pertinent negative responses have been documented in the HPI. ROS Other: All systems not noted in ROS Statement are negative. Constitutional: Denies: fever Eyes: Denies: eye pain ENT: Denies: ear pain Respiratory: Reports: cough, dyspnea Cardiovascular: Denies: chest pain Endocrine: Denies: fatigue Gastrointestinal: Denies: abdominal pain Genitourinary: Denies: dysuria Musculoskeletal: Denies: back pain Skin: Denies: rash Neurological: Denies: weakness Past Medical History Past Medical History: Asthma, Diabetes Mellitus, Hypertension, Myocardial Infarction (OR) Additional Past Medical History / Comment(s): Rheumatic fever. OR 2006, 2011. stopped taking prescribed medications 4-5 years ago Last Myocardial Infarction Date:: 12/25/16 History of Any Multi-Drug Resistant Organisms: None Reported Past Surgical History: Heart Catheterization With Stent Past Anesthesia/Blood Transfusion Reactions: No Reported Reaction Date of Last Stent Placement:: 12/25/16 Past Psychological History: No Psychological Hx Reported Past Alcohol Use History: None Reported Past Drug Use History: None Reported General Exam Limitations: no limitations General appearance: alert, in no apparent distress Head exam: Present: atraumatic Eye exam: Present: normal appearance Neck exam: Present: normal inspection Respiratory exam: Present: wheezes, decreased breath sounds Cardiovascular Exam: Present: regular rate, normal rhythm GI/Abdominal exam: Present: soft. Absent: tenderness Extremities exam: Present: normal inspection. Absent: pedal edema, calf tenderness Neurological exam: Present: alert Psychiatric exam: Present: normal affect, normal mood Skin exam: Present: normal color Course Vital Signs 06/25/21 06/25/21 06/25/21 11:20 12:18 12:20 Temperature 97.6 F Pulse Rate 110 H 108 H 99 Respiratory 24 18 Rate Blood Pressure 146/79 120/84 O2 Sat by Pulse 90 L 97 Oximetry 06/25/21 12:27 Temperature Pulse Rate 95 Respiratory Rate Blood Pressure O2 Sat by Pulse Oximetry EKG Findings - EKG Comments: EKG Findings:: Sinus tachycardia with rate of 105. NC 146. QRS 150. QT 382. QTC 54. Superior axis. Right bundle branch block. Septal Q waves. No acute ST change. Medical Decision Making - Medical Decision Making Patient reevaluated and resting comfortably in bed. Pulse ox 95% on room air. Patient is feeling much better and requesting discharge home. Previous labs reviewed. - Lab Data Result diagrams: 06/25/21 11:28 06/25/21 11:28 Lab Results 06/25/21 06/25/21 06/25/21 Range/Units 11:24 11:28 11:28 WBC 19.7 H (3.8-10.6) k/uL RBC 5.60 (4.30-5.90) m/uL Hgb 16.9 (13.0-17.5) gm/dL Hct 50.9 (39.0-53.0) % MCV 90.9 (80.0-100.0) fL MCH 30.2 (25.0-35.0) pg MCHC 33.3 (31.0-37.0) g/dL RDW 14.7 (11.5-15.5) % Plt Count 199 (150-450) k/uL MPV 7.8 Neutrophils % 58 % Lymphocytes % 13 % Monocytes % 3 % Eosinophils % 23 % Basophils % 1 % Neutrophils # 11.5 H (1.3-7.7) k/uL Lymphocytes # 2.5 (1.0-4.8) k/uL Monocytes # 0.7 (0-1.0) k/uL Eosinophils # 4.6 H (0-0.7) k/uL Basophils # 0.2 (0-0.2) k/uL Manual Slide Review Performed RBC Morphology Normal Sodium 139 (137-145) mmol/L Potassium 4.5 (3.5-5.1) mmol/L Chloride 103 (98-107) mmol/L Carbon Dioxide 24 (22-30) mmol/L Anion Gap 12 mmol/L BUN 27 H (9-20) mg/dL Creatinine 1.58 H (0.66-1.25) mg/dL Est GFR (CKD-EPI)AfAm 51 (>60 ml/min/1.73 sqM) Est GFR (CKD-EPI)NonAf 44 (>60 ml/min/1.73 sqM) Glucose 176 H (74-99) mg/dL Plasma Lactic Acid Adriano (0.7-2.0) mmol/L Calcium 9.9 (8.4-10.2) mg/dL Total Bilirubin 1.1 (0.2-1.3) mg/dL AST 28 (17-59) U/L ALT 13 (4-49) U/L Alkaline Phosphatase 114 (38-126) U/L Total Protein 7.3 (6.3-8.2) g/dL Albumin 4.6 (3.5-5.0) g/dL Coronavirus (PCR) Not Detected (Not Detectd) 06/25/21 Range/Units 11:28 WBC (3.8-10.6) k/uL RBC (4.30-5.90) m/uL Hgb (13.0-17.5) gm/dL Hct (39.0-53.0) % MCV (80.0-100.0) fL MCH (25.0-35.0) pg MCHC (31.0-37.0) g/dL RDW (11.5-15.5) % Plt Count (150-450) k/uL MPV Neutrophils % % Lymphocytes % % Monocytes % % Eosinophils % % Basophils % % Neutrophils # (1.3-7.7) k/uL Lymphocytes # (1.0-4.8) k/uL Monocytes # (0-1.0) k/uL Eosinophils # (0-0.7) k/uL Basophils # (0-0.2) k/uL Manual Slide Review RBC Morphology Sodium (137-145) mmol/L Potassium (3.5-5.1) mmol/L Chloride (98-107) mmol/L Carbon Dioxide (22-30) mmol/L Anion Gap mmol/L BUN (9-20) mg/dL Creatinine (0.66-1.25) mg/dL Est GFR (CKD-EPI)AfAm (>60 ml/min/1.73 sqM) Est GFR (CKD-EPI)NonAf (>60 ml/min/1.73 sqM) Glucose (74-99) mg/dL Plasma Lactic Acid Adriano 1.9 (0.7-2.0) mmol/L Calcium (8.4-10.2) mg/dL Total Bilirubin (0.2-1.3) mg/dL AST (17-59) U/L ALT (4-49) U/L Alkaline Phosphatase (38-126) U/L Total Protein (6.3-8.2) g/dL Albumin (3.5-5.0) g/dL Coronavirus (PCR) (Not Detectd) - Radiology Data Radiology results: image reviewed (Chest x-ray shows hyperinflation) Disposition Clinical Impression: Asthma exacerbation Disposition: HOME SELF-CARE Condition: Stable Instructions (If sedation given, give patient instructions): Asthma (ED) Additional Instructions: Prescriptions have been sent to pharmacy. Please follow-up with your primary care physician in the next day or 2 for recheck. Return for difficulty in breathing, fever, worsening or change in symptoms or other concerns. Prescriptions: predniSONE [Deltasone] 20 mg PO BID #10 tab Azithromycin [Zithromax Z-pack (6 tabs)] 250 mg PO DIRECTED #6 tab Is patient prescribed a controlled substance at d/c from ED?: No Referrals: Alejandra Dumont MD [Primary Care Provider] - 1-2 days Time of Disposition: 12:59
[2021-06-25] MEDS: methylPREDNISolone SOD SUCCI 125 MG/2 ML VIAL IV STA (11:34)
[2021-06-25 11:38] LABS: Basophils # (A) 0.2 k/uL (0-0.2); Basophils % (A) 1 %; Eosinophils # (A) 4.6 k/uL (0-0.7); Eosinophils % (A) 23 %; HCT 50.9 % (39.0-53.0); HGB 16.9 gm/dL (13.0-17.5); Lymphocytes # (A) 2.5 k/uL (1.0-4.8); Lymphocytes % (A) 13 %; MCH 30.2 pg (25.0-35.0); MCHC 33.3 g/dL (31.0-37.0); MCV 90.9 fL (80.0-100.0); Mean Platelet Volume 7.8; Monocytes # (A) 0.7 k/uL (0-1.0); Monocytes % (A) 3 %; Neutrophils # (A) 11.5 k/uL (1.3-7.7); Neutrophils % (A) 58 %; Platelet Count 199 k/uL (150-450); RDW 14.7 % (11.5-15.5); WBC 19.7 k/uL (3.8-10.6)
[2021-06-25 11:53] LABS: Calcium 9.9 mg/dL (8.4-10.2); Total Bilirubin 1.1 mg/dL (0.2-1.3)
[2021-06-25 11:59] LABS: Potassium 4.5 mmol/L (3.5-5.1); Total Protein 7.3 g/dL (6.3-8.2)
[2021-06-25 12:00] LABS: Albumin 4.6 g/dL (3.5-5.0)
--- NOTE | 2021-06-25 12:07 | XR ---
EXAMINATION TYPE: XR chest 2V DATE OF EXAM: 06/25/2021 COMPARISON: 05/11/2021 TECHNIQUE: PA and lateral views submitted. HISTORY: Difficulty breathing FINDINGS: The lungs are clear and there is no pneumothorax, pleural effusion, or focal pneumonia. Hyperinflati on suggests COPD there is biapical pleural thickening. Atherosclerotic change aorta. Degenerative everett nge of the spine. IMPRESSION: 1. COPD
[2021-06-25] MEDS: IPRATROPIUM-ALBUTEROL 3 ML NEB INHALATION STA (12:17)
[2021-06-25 12:21] VITALS: BP 120/84; RESP 18
[2021-06-25 12:27] VITALS: PULSE 95
== END 2021-06-25 13:10 | disposition home or self-care (01) ==
LOC: EC 11:14
DX: J45.901 Unspecified asthma with (acute) exacerbation (principal); E11.9 Type 2 diabetes mellitus without complications; I10 Essential (primary) hypertension; I25.2 Old myocardial infarction; Z86.16 Personal history of COVID-19; Z87.891 Personal history of nicotine dependence; Z20.822 Contact with and (suspected) exposure to COVID-19; Z79.52 Long term (current) use of systemic steroids; Z79.82 Long term (current) use of aspirin; Z79.84 Long term (current) use of oral hypoglycemic drugs; Z79.899 Other long term (current) drug therapy; Z88.6 Allergy status to analgesic agent
CPT/HCPCS: 36415; 94640; 93005; 80053; 83605; 85025; 87635; 71046; 99285; 96374; J2930

== ENCOUNTER 2021-08-21 02:47 | Observation (INO) | payer MEDICARE ==
[2021-08-21] MEDS ORDERED: methylPREDNISolone SOD SUCCI 125 MG/2 ML VIAL IV STA (03:24)
[2021-08-21] MEDS ORDERED: SODIUM CHLORIDE 0.9% 1,000 ML IV STA ×2 (03:24)
[2021-08-21] MEDS ORDERED: IPRATROPIUM-ALBUTEROL 3 ML NEB INHALATION STA ×2 (03:24→04:51)
--- NOTE | 2021-08-21 03:26 | ED ---
SOB HPI - General Chief Complaint: Shortness of Breath Stated Complaint: Asthma Time Seen by Provider: 08/21/21 02:50 Source: patient, family, RN notes reviewed, old records reviewed Mode of arrival: wheelchair Limitations: no limitations - History of Present Illness Initial Comments: This is a 70-year-old male to the emergency department today. Patient presents today for evaluation of severe shortness of breath history of asthma, patient's arteries coronavirus time that he has had in his entire life. Patient persistent shortness of breath on arrival to the emergency department with cough and congestion. No recent fevers no chest pain. No recent travel history, patient again has Maddi had coronavirus Complaint: shortness of breath, cough, pain with inspiration, "asthma attack" -: hour(s) Severity: severe Severity scale (1-10): 8 Quality: aching Consistency: constant Worsens With: nothing Known History Of: COPD, asthma Context: recent URI, recent illness Associated Symptoms: chest pain, pain with inspiration, cough, sputum production Treatments Prior to Arrival: bronchodilator - Related Data Home Medications Medication Instructions Recorded Confirmed Albuterol Nebulized [Ventolin 2.5 mg INHALATION RT-Q4H PRN 06/25/21 06/25/21 Nebulized] Allopurinol [Zyloprim] 100 mg PO DAILY 06/25/21 06/25/21 Cholecalciferol [Vitamin D3 (25 25 mcg PO DAILY 06/25/21 06/25/21 Mcg = 1000 Iu)] Furosemide [Lasix] 20 mg PO DAILY 06/25/21 06/25/21 Glimepiride [Amaryl] 1 mg PO AC-BRKFST 06/25/21 06/25/21 Spironolactone [Aldactone] 12.5 mg PO DAILY 06/25/21 06/25/21 Previous Rx's Medication Instructions Recorded Aspirin [Adult Low Dose Aspirin EC] 81 mg PO DAILY #30 tablet. 12/28/16 Atorvastatin [Lipitor] 80 mg PO HS #30 tab 12/28/16 carvediloL [Coreg] 3.125 mg PO BID-W/MEALS #60 tab 12/28/16 lisinopriL [Zestril] 5 mg PO HS #60 tab 12/28/16 Albuterol Nebulized [Ventolin 2.5 mg INHALATION QID PRN #125 nebu 06/25/21 Nebulized] Azithromycin [Zithromax Z-pack (6 250 mg PO DIRECTED #6 tab 06/25/21 tabs)] predniSONE [Deltasone] 20 mg PO BID #10 tab 06/25/21 Allergies Allergy/AdvReac Type Severity Reaction Status Date / Time ibuprofen AdvReac Mild Abdominal Verified 08/21/21 02:57 Pain Review of Systems ROS Statement: Those systems with pertinent positive or pertinent negative responses have been documented in the HPI. ROS Other: All systems not noted in ROS Statement are negative. Past Medical History Past Medical History: Asthma, Diabetes Mellitus, Hypertension, Myocardial Infarction ([place]) Additional Past Medical History / Comment(s): Rheumatic fever. [place] 2006, 2011. stopped taking prescribed medications 4-5 years ago Last Myocardial Infarction Date:: 12/25/16 History of Any Multi-Drug Resistant Organisms: None Reported Past Surgical History: Heart Catheterization With Stent Past Anesthesia/Blood Transfusion Reactions: No Reported Reaction Date of Last Stent Placement:: 12/25/16 Past Psychological History: No Psychological Hx Reported Smoking Status: Never smoker Past Alcohol Use History: None Reported Past Drug Use History: None Reported General Exam General appearance: alert, in no apparent distress, anxious Head exam: Present: atraumatic, normocephalic, normal inspection Eye exam: Present: normal appearance, PERRL, EOMI. Absent: scleral icterus, conjunctival injection, periorbital swelling ENT exam: Present: normal exam, mucous membranes moist Neck exam: Present: normal inspection. Absent: tenderness, meningismus, lymphadenopathy Respiratory exam: Present: respiratory distress, wheezes, accessory muscle use, decreased breath sounds, prolonged expiratory. Absent: rales, rhonchi, stridor Cardiovascular Exam: Present: normal rhythm, tachycardia, normal heart sounds. Absent: systolic murmur, diastolic murmur, rubs, gallop, clicks GI/Abdominal exam: Present: soft, normal bowel sounds. Absent: distended, tend erness, guarding, rebound, rigid Extremities exam: Present: normal inspection, full ROM, normal capillary refill. Absent: tenderness, pedal edema, joint swelling, calf tenderness Back exam: Present: normal inspection Neurological exam: Present: alert, oriented X3, CN II-XII intact Psychiatric exam: Present: normal affect, normal mood Skin exam: Present: warm, dry, intact, normal color. Absent: rash Course Vital Signs 08/21/21 08/21/21 08/21/21 02:52 03:24 04:08 Temperature 98.6 F Pulse Rate 111 H 104 H 117 H Respiratory 22 20 Rate Blood Pressure 134/56 135/75 O2 Sat by Pulse 93 L 95 Oximetry 08/21/21 08/21/21 08/21/21 04:12 04:23 05:18 Temperature Pulse Rate 112 H 112 H 101 H Respiratory 20 Rate Blood Pressure 133/85 O2 Sat by Pulse 98 Oximetry 08/21/21 05:29 Temperature Pulse Rate 105 H Respiratory 20 Rate Blood Pressure 123/84 O2 Sat by Pulse 98 Oximetry - Reevaluation(s) Reevaluation #1: 08/21/21 05:49 Medical record is reviewed Reevaluation #2: 08/21/21 05:49 Patient symptoms are unchanged here in the ER Reevaluation #3: 08/21/21 05:49 Patient still feeling unwell, does not fill comfortable with discharge - Consultations Consultation #1: Soap with Dr. Perez who agrees to admit this patient Medical Decision Making - Medical Decision Making 70 male with significant COPD exacerbation asthma exacerbation with distress. Patient will be admitted for breathing treatments and supportive care - Lab Data Result diagrams: 08/21/21 03:48 08/21/21 03:48 Lab Results 08/21/21 08/21/21 08/21/21 Range/Units 03:48 03:48 03:48 WBC 14.6 H (3.8-10.6) k/uL RBC 5.12 (4.30-5.90) m/uL Hgb 15.7 (13.0-17.5) gm/dL Hct 45.4 (39.0-53.0) % MCV 88.7 (80.0-100.0) fL MCH 30.6 (25.0-35.0) pg MCHC 34.5 (31.0-37.0) g/dL RDW 14.8 (11.5-15.5) % Plt Count 191 (150-450) k/uL MPV 7.9 Neutrophils % 67 % Lymphocytes % 12 % Monocytes % 5 % Eosinophils % 14 % Basophils % 1 % Neutrophils # 9.7 H (1.3-7.7) k/uL Lymphocytes # 1.8 (1.0-4.8) k/uL Monocytes # 0.7 (0-1.0) k/uL Eosinophils # 2.1 H (0-0.7) k/uL Basophils # 0.1 (0-0.2) k/uL Sodium 139 (137-145) mmol/L Potassium 5.1 (3.5-5.1) mmol/L Chloride 102 (98-107) mmol/L Carbon Dioxide 27 (22-30) mmol/L Anion Gap 10 mmol/L BUN 34 H (9-20) mg/dL Creatinine 1.56 H (0.66-1.25) mg/dL Est GFR (CKD-EPI)AfAm 52 (>60 ml/min/1.73 sqM) Est GFR (CKD-EPI)NonAf 45 (>60 ml/min/1.73 sqM) Glucose 194 H (74-99) mg/dL Plasma Lactic Acid Adriano 1.4 (0.7-2.0) mmol/L Calcium 9.8 (8.4-10.2) mg/dL Magnesium 2.1 (1.6-2.3) mg/dL Total Bilirubin 0.8 (0.2-1.3) mg/dL AST 22 (17-59) U/L ALT 13 (4-49) U/L Alkaline Phosphatase 126 (38-126) U/L Creatine Kinase 62 (55-170) U/L Troponin I (0.000-0.034) ng/mL NT-Pro-B Natriuret Pep pg/mL Total Protein 6.8 (6.3-8.2) g/dL Albumin 4.3 (3.5-5.0) g/dL 08/21/21 08/21/21 Range/Units 03:48 03:48 WBC (3.8-10.6) k/uL RBC (4.30-5.90) m/uL Hgb (13.0-17.5) gm/dL Hct (39.0-53.0) % MCV (80.0-100.0) fL MCH (25.0-35.0) pg MCHC (31.0-37.0) g/dL RDW (11.5-15.5) % Plt Count (150-450) k/uL MPV Neutrophils % % Lymphocytes % % Monocytes % % Eosinophils % % Basophils % % Neutrophils # (1.3-7.7) k/uL Lymphocytes # (1.0-4.8) k/uL Monocytes # (0-1.0) k/uL Eosinophils # (0-0.7) k/uL Basophils # (0-0.2) k/uL Sodium (137-145) mmol/L Potassium (3.5-5.1) mmol/L Chloride (98-107) mmol/L Carbon Dioxide (22-30) mmol/L Anion Gap mmol/L BUN (9-20) mg/dL Creatinine (0.66-1.25) mg/dL Est GFR (CKD-EPI)AfAm (>60 ml/min/1.73 sqM) Est GFR (CKD-EPI)NonAf (>60 ml/min/1.73 sqM) Glucose (74-99) mg/dL Plasma Lactic Acid Adriano (0.7-2.0) mmol/L Calcium (8.4-10.2) mg/dL Magnesium (1.6-2.3) mg/dL Total Bilirubin (0.2-1.3) mg/dL AST (17-59) U/L ALT (4-49) U/L Alkaline Phosphatase (38-126) U/L Creatine Kinase (55-170) U/L Troponin I <0.012 (0.000-0.034) ng/mL NT-Pro-B Natriuret Pep 196 pg/mL Total Protein (6.3-8.2) g/dL Albumin (3.5-5.0) g/dL - EKG Data -: EKG Interpreted by Me (EKG is sinus tachycardia 116. 148 QRS 148 QTc 505) - Radiology Data Radiology results: report reviewed (Chest x-rays negative for acute disease), image reviewed Disposition Clinical Impression: COPD (chronic obstructive pulmonary disease), Asthma with status asthmaticus, Acute exacerbation of chronic obstructive pulmonary disease Disposition: ADMITTED IP TO THIS HOSP Condition: Good Is patient prescribed a controlled substance at d/c from ED?: No
[2021-08-21] MEDS ORDERED: AZITHROMYCIN 500 MG in SODIUM CHLORIDE 0.9% 250 ML IVPB ONE (03:30)
[2021-08-21 04:00] LABS: Basophils # (A) 0.1 k/uL (0-0.2); Basophils % (A) 1 %; Eosinophils # (A) 2.1 k/uL (0-0.7); Eosinophils % (A) 14 %; HCT 45.4 % (39.0-53.0); HGB 15.7 gm/dL (13.0-17.5); Lymphocytes # (A) 1.8 k/uL (1.0-4.8); Lymphocytes % (A) 12 %; MCH 30.6 pg (25.0-35.0); MCHC 34.5 g/dL (31.0-37.0); MCV 88.7 fL (80.0-100.0); Mean Platelet Volume 7.9; Monocytes # (A) 0.7 k/uL (0-1.0); Monocytes % (A) 5 %; Neutrophils # (A) 9.7 k/uL (1.3-7.7); Neutrophils % (A) 67 %; Platelet Count 191 k/uL (150-450); RBC 5.12 m/uL (4.30-5.90); RDW 14.8 % (11.5-15.5); WBC 14.6 k/uL (3.8-10.6)
--- NOTE | 2021-08-21 04:03 | XR ---
EXAMINATION TYPE: XR chest 1V portable DATE OF EXAM: 08/21/2021 COMPARISON: 06/25/2021 HISTORY: Short of breath TECHNIQUE: Single view FINDINGS: Heart is normal. Lungs are clear of infiltrate. There is no heart failure. There are no hil ar masses. Bony thorax is intact. IMPRESSION: No active cardiopulmonary disease. Normal heart. No change.
[2021-08-21 04:25] LABS: Albumin 4.3 g/dL (3.5-5.0); Calcium 9.8 mg/dL (8.4-10.2); Magnesium 2.1 mg/dL (1.6-2.3); Potassium 5.1 mmol/L (3.5-5.1); Total Bilirubin 0.8 mg/dL (0.2-1.3); Total Protein 6.8 g/dL (6.3-8.2)
[2021-08-21] MEDS ORDERED: SODIUM CHLORIDE 0.9% 1,000 ML IV SCH ×4 (05:00→22:30)
[2021-08-21] MEDS ORDERED: methylPREDNISolone SOD SUCCI 125 MG/2 ML VIAL IV SCH (06:00)
[2021-08-21] MEDS ORDERED: ALBUTEROL NEBULIZED 2.5 MG/3 ML INHALATION SCH (08:00)
[2021-08-21] MEDS ORDERED: ALBUTEROL NEBULIZED 2.5 MG/3 ML INHALATION PRN ×2 (08:52→11:09)
--- NOTE | 2021-08-21 12:37 | ECHOF ---
Referral Reason:CHF MEASUREMENTS -------- HEIGHT: 182.9 cm WEIGHT: 89.8 kg BP: RVIDd: 3.1 cm (< 3.3) IVSd: 0.6 cm (0.6 - 1.1) LVIDd: 4.2 cm (3.9 - 5.3) LVPWd: 0.6 cm (0.6 - 1.1) IVSs: 1.2 cm LVIDs: 2.8 cm LVPWs: 1.3 cm LA Diam: 4.0 cm (2.7 - 3.8) Ao Diam: 3.5 cm (2.0 - 3.7) AV Cusp: 2.7 cm (1.5 - 2.6) LA Diam: 3.9 cm (2.7 - 3.8) MV EXCURSION: 14.336 mm (> 18.000) MV EF SLOPE: 111 mm/s (70 - 150) EPSS: 1.7 cm MV E James: 0.77 m/s MV DecT: 197 ms MV A James: 1.19 m/s MV E/A Ratio: 0.65 RAP: 5.00 mmHg RVSP: 15.39 mmHg FINDINGS -------- Sinus rhythm. This was a techncally difficult study with suboptimal views, , Definity utilized for enhancement of i mages. The left ventricular size is normal. Left ventricular wall thickness is normal. Overall left vent ricular systolic function is mildly impaired with, an EF between 45 - 50 %. Apical anterior LV wall motion is hypokinetic. Apical inferior LV wall motion is hypokinetic. Apical septum LV wall mo tion is hypokinetic. The right ventricle is normal in size. The left atrial size is normal. The right atrial size is normal. There is mild aortic valve sclerosis. There is no evidence of aortic regurgitation. Mild mitral annular calcification present. Mild mitral regurgitation is present. Mild tricuspid regurgitation present. Right ventricular systolic pressure is normal at < 35 mmHg. There is no pulmonic regurgitation present. Echo free space indicative of a pericardial fat pad. CONCLUSIONS -------- 1. The left ventricular size is normal. 2. Left ventricular wall thickness is normal. 3. The right ventricle is normal in size. 4. The left atrial size is normal. 5. The right atrial size is normal. 6. There is mild aortic valve sclerosis. 7. Mild mitral annular calcification present. 8. Mild mitral regurgitation is present. 9. Mild tricuspid regurgitation present. 10. There is no pulmonic regurgitation present. 11. Echo free space indicative of a pericardial fat pad. [employer]: Adeola Hernandez RDCS
--- NOTE | 2021-08-21 12:45 | P.CNPUL ---
History of Present Illness Consult date: 08/21/21 Reason for consult: dyspnea History of present illness: 70-year-old male patient home a presented to the hospital because of worsening shortness of breath. We were asked to evaluate this patient because of shortness of breath and COPD. He is known to have a cardiac history with cardiomyopathy and poor ejection fraction. He presented to the ED because of increased dyspnea. He also had some cough and congestion. No reported fever or chills. No exposure to COVID-19 and the patient's COVID-19 testing came back negative. His white cell count is at 14.6 with hemoglobin of 15.7. His creatinine was at 1.56 with a BUN of 34. Rest of the electrodes were normal. LFTs were normal. ProBNP level was 196. Troponin was negative. Currently on 100% on a beta facemask with a pulse ox of 100%. BP is 149/87. He is afebrile. His chest x-ray revealed no acute abnormalities. No airspace consolidations. Note that the patient has nasal polyps. He prefers facemasks over nasal cannula. He doesn't have home oxygen. He uses Symbicort at home. He has a nebulizer at home and utilizes pro-air rescue inhaler on as-needed basis. No previous pneumonias and respiratory failure because of COPD related complications. No childhood asthma. History of any chest pain. No swelling lower extremities. No altered mentation. 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 He has not received COVID-19 vaccination Review of Systems Constitutional: Reports fatigue Eyes: denies as per HPI, denies blurred vision, denies bulging eye, denies decreased vision, denies diplopia, denies discharge, denies dry eye, denies irritation, denies itching, denies pain, denies photophobia, denies loss of peripheral vision, denies loss of vision, denies tunnel vision/blind spots Ears: deny: decreased hearing, ear discharge, earache, tinnitus Breasts: absent: as per HPI, gynecomastia Cardiovascular: Reports as per HPI, Reports claudication, Reports dyspnea on exertion Respiratory: Reports cough, Reports dyspnea, Reports wheezing Gastrointestinal: Reports as per HPI Genitourinary: Reports as per HPI Musculoskeletal: Reports as per HPI Musculoskeletal: absent: ankle pain, ankle stiffness, ankle swelling, as per HPI, elbow pain, elbow stiffness, elbow swelling, foot pain, foot stiffness, foot swelling, hand pain, hand stiffness, hand swelling, hip pain, hip stiffness, hip swelling, knee pain, knee stiffness, knee swelling, shoulder pain, shoulder stiffness, shoulder swelling, wrist pain, wrist stiffness, wrist swelling Integumentary: Reports as per HPI Neurological: Reports as per HPI Psychiatric: Reports as per HPI Endocrine: Reports as per HPI Hematologic/Lymphatic: Reports as per HPI Allergic/Immunologic: Reports as per HPI Past Medical History Past Medical History: Coronary Artery Disease (CAD), COPD, Diabetes Mellitus, Hypertension, Myocardial Infarction ([place]) Additional Past Medical History / Comment(s): Rheumatic fever, COPD, coronary artery disease, diabetes mellitus, CHF, chronic kidney disease. The patient also has a remote history of myocardial infarction back in 2006. He has a stent in his LAD. Last Myocardial Infarction Date:: 12/25/16 History of Any Multi-Drug Resistant Organisms: None Reported Past Surgical History: Heart Catheterization With Stent Past Anesthesia/Blood Transfusion Reactions: No Reported Reaction Date of Last Stent Placement:: 12/25/16 Past Psychological History: No Psychological Hx Reported Smoking Status: Never smoker Past Alcohol Use History: None Reported Past Drug Use History: None Reported Medications and Allergies Home Medications Medication Instructions Recorded Confirmed Type Aspirin [Adult Low Dose Aspirin EC] 81 mg PO DAILY #30 tablet. 12/28/16 08/21/21 Rx Atorvastatin [Lipitor] 80 mg PO HS #30 tab 12/28/16 08/21/21 Rx lisinopriL [Zestril] 5 mg PO HS #60 tab 12/28/16 08/21/21 Rx Allopurinol [Zyloprim] 100 mg PO DAILY 06/25/21 08/21/21 History Cholecalciferol [Vitamin D3 (25 25 mcg PO DAILY 06/25/21 08/21/21 History Mcg = 1000 Iu)] Furosemide [Lasix] 20 mg PO DAILY 06/25/21 08/21/21 History Glimepiride [Amaryl] 1 mg PO AC-BRKFST 06/25/21 08/21/21 History Spironolactone [Aldactone] 12.5 mg PO DAILY 06/25/21 08/21/21 History Albuterol Nebulized [Ventolin 2.5 mg INHALATION RT-QID PRN 08/21/21 08/21/21 History Nebulized] carvediloL [Coreg] 3.125 mg PO AC-BID 08/21/21 08/21/21 History Allergies Allergy/AdvReac Type Severity Reaction Status Date / Time ibuprofen AdvReac Mild Abdominal Verified 08/21/21 09:26 Pain Physical Exam Vitals: Vital Signs Temp Pulse Pulse Resp BP BP Pulse Ox 08/21/21 09:35 97.5 F L 105 H 17 149/87 100 08/21/21 08:00 20 08/21/21 06:45 105 H 20 125/84 100 08/21/21 05:29 105 H 20 123/84 98 08/21/21 05:18 101 H 08/21/21 04:23 112 H 08/21/21 04:12 112 H 20 133/85 98 08/21/21 04:08 117 H 08/21/21 03:24 104 H 20 135/75 95 08/21/21 02:52 98.6 F 111 H 22 134/56 93 L Intake and Output 08/20/21 08/21/21 08/21/21 22:59 06:59 14:59 Other: # Voids 1 Weight 89.811 kg Gen. appearance, comfortable likely distress, pulse ox is 98% on room air oxygen Head exam was generally normal. There was no scleral icterus or corneal arcus. Mucous membranes were moist. Neck was supple and without jugular venous distension, thyromegaly, or carotid bruits. Carotids were easily palpable bilaterally. There was no adenopathy. Patient is edentulous Lungs sounds are diminished and the patient scattered expiratory wheezes throughout the lung his bilaterally Cardiac exam revealed the PMI to be normally situated and sized. The rhythm was regular and no extrasystoles were noted during several minutes of auscultation. The first and second heart sounds were normal and physiologic splitting of the second heart sound was noted. There were no murmurs, rubs, clicks, or gallops. Abdominal exam revealed normal bowel sounds. The abdomen was soft, non-tender, and without masses, organomegaly, or appreciable enlargement of the abdominal aorta. Examination of the extremities revealed easily palpable radial, femoral and pedal pulses. There was no cyanosis, clubbing or edema. Examination of the skin revealed no evidence of significant rashes, suspicious appearing nevi or other concerning lesions. Neurologically, the patient is awake and alert and the patient does not have any focal neurological deficit. Cranial nerves are essentially intact. Results - Laboratory Findings CBC and BMP: 08/21/21 03:48 08/21/21 03:48 Abnormal lab findings: Abnormal Labs 08/21/21 08/21/21 03:48 03:48 WBC 14.6 H Neutrophils # 9.7 H Eosinophils # 2.1 H BUN 34 H Creatinine 1.56 H Glucose 194 H - Diagnostic Findings Chest x-ray: image reviewed Assessment and Plan Plan: 1 acute COPD exacerbation with secondary shortness of breath, no significant hypoxemia at this point in time and the patient was taken off the nonrebreather mask 2 nasal polyposis 3 coronary artery disease with previous history of myocardial infarction and stenting of the LAD 4 history of ischemic cardiomyopathy with an ejection fraction of 20 to 25%. No signs of any decompensated heart failure at this point in time 5 hypertension 6 diabetes mellitus 7 history of rheumatic fever 8 chronic kidney disease, creatinine stable at 1.56 and GFR of 45 Plan Utilize DuoNeb nebulized treatments around the clock IV Solu-Medrol 40 mg every 8 hours Insulin sliding scale insulin coverage for blood sugar control FiO2 has been weaned down to maintain a saturation above 90% on room air Resume all medication Outpatient PFT Outpatient adjustment of maintenance respiratory medications. Currently on Symbicort, Proventil rescue inhaler and a nebulizer We'll follow. The patient now vaccinated for COVID-19. He has been exposed to COVID-19 back in February 2021
[2021-08-21 17:07] LABS: Glucose,Whole Blood 248 mg/dL (75-99)
[2021-08-21] MEDS: carvediloL 3.125 MG TAB PO SCH (17:45)
[2021-08-21] MEDS: INSULIN ASPART (NovoLOG) 100 UNIT/ML VIAL SQ SCH ×2 (17:45→20:36)
--- NOTE | 2021-08-21 18:45 | CONS ---
CONSULTATION This is an elderly 70-year-old gentleman who came into the hospital with wheezing and shortness of breath suggestive of COPD with exacerbation. He quit smoking 4 years ago. He carries a diagnosis of CAD with a previous anterior [place] in 2017 and stenting. Since then he has done well. His LV function has recovered. He is in the range of 45% to 50%. He also has diabetes, hypertension and hyperlipidemia. At the time of my evaluation he is comfortable. He has a non-rebreather mask, but I am suggesting that this be discontinued after evaluation by Pulmonary. EKG revealed a sinus mechanism with a right bundle branch block and tachycardia. His breathing has improved since he arrived after receiving some breathing treatments. PAST MEDICAL HISTORY: 1. CAD with prior [place] and PCI of LAD in 2017. 2. Hypertension. 3. Diabetes. 4. Hyperlipidemia. 5. Bronchial asthma and COPD with past history of smoking. MEDICATIONS: Medications at home include Ventolin inhaler, Lasix 20 mg daily, glimepiride, Aldactone, Lasix 20 mg daily, aspirin 81 mg daily, Lipitor 80 mg daily, Coreg 3.125 mg b.i.d., lisinopril 5 mg daily. PHYSICAL EXAMINATION: Blood pressure is 118/70. Pulse rate is about 104 per minute. HEENT unremarkable. Fundus was not examined by me. Neck is supple. There is no JVD. No carotid bruit. Heart exam reveals S1, S2 with a short systolic murmur at the base and left sternal border. LUNGS: Bilateral scattered rhonchi. ABDOMEN: Soft, nontender. Lower extremities reveal diminished pulses. Central nervous system grossly within normal limits. IMPRESSION: 1. Exacerbation of chronic obstructive pulmonary disease. 2. History of coronary artery disease, but no evidence of heart failure clinically. There is no evidence of ischemia. 3. History of previous anterior myocardial infarction and PCI of LAD. 4. Type 2 diabetes. 5. Hypertension. 6. History of mild chronic kidney disease. RECOMMENDATIONS: I am recommending that we resume his home medications, increase his carvedilol to 6.25 mg b.i.d., cautiously hydrate him and resume most of his home medications. Patient's main problem appears to be exacerbation of COPD, but no overt heart failure or angina. Troponins are unremarkable. Thank you very much for the consult. MMODL / IJN: [id number] /
[2021-08-21 20:27] LABS: Glucose,Whole Blood 263 mg/dL (75-99)
[2021-08-21] MEDS: methylPREDNISolone SOD SUCCI 40 MG/ML 1 ML VIAL IV SCH (20:35)
[2021-08-21] MEDS ORDERED: ATORVASTATIN 80 MG TAB PO SCH (21:00)
[2021-08-21] MEDS ORDERED: lisinopriL 5 MG TAB PO SCH (21:00)
[2021-08-21] MEDS: ALBUTEROL NEBULIZED 2.5 MG/3 ML INHALATION SCH (21:56)
[2021-08-22] MEDS: carvediloL 3.125 MG TAB PO SCH (07:10)
[2021-08-22] MEDS: methylPREDNISolone SOD SUCCI 40 MG/ML 1 ML VIAL IV SCH (07:12)
[2021-08-22] MEDS ORDERED: GLIMEPIRIDE 1 MG TAB PO SCH (07:30)
[2021-08-22 08:00] LABS: Glucose,Whole Blood 180 mg/dL (75-99)
[2021-08-22] MEDS: INSULIN ASPART (NovoLOG) 100 UNIT/ML VIAL SQ SCH ×2 (08:19→13:13)
[2021-08-22] MEDS: ALBUTEROL NEBULIZED 2.5 MG/3 ML INHALATION SCH (08:54)
[2021-08-22] MEDS ORDERED: CHOLECALCIFEROL 25 MCG (1000 IU) TABLET PO SCH (09:00)
[2021-08-22] MEDS ORDERED: SPIRONOLACTONE 25 MG TAB PO SCH (09:00)
[2021-08-22] MEDS ORDERED: allopurinoL 100 MG TAB PO SCH (09:00)
[2021-08-22] MEDS ORDERED: ASPIRIN 81 MG PO SCH (09:00)
[2021-08-22] MEDS ORDERED: FUROSEMIDE 20 MG TAB PO SCH (09:00)
--- NOTE | 2021-08-22 12:37 | PN ---
PROGRESS NOTE Mr. Ramirez is a gentleman with ischemic cardiomyopathy, ejection fraction in the 45- 50% range. He came in mostly with exacerbation of COPD and bronchitis. Given his reactive airway disease type picture I am suggesting we switch him from Coreg to Lopressor 25 mg t.i.d. He has no heart failure. He is doing well cardiac-ramey, no chest pain. Vitals are stable. JVD is not evident. S1-S2 heard normally. Short systolic murmur noted. Lungs reveal scattered rhonchi with improved air entry. Abdomen and lower extremity exam is unchanged. Patient can be discharged on Lopressor 25 mg t.i.d. 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 MMODL / IJN: [id number] /
[2021-08-22 13:05] LABS: Glucose,Whole Blood 177 mg/dL (75-99)
--- NOTE | 2021-08-22 13:15 | P.HPIM ---
History of Present Illness H&P Date: 08/21/21 Patient is a 70-year-old male pressures of breath and was started on 100% nonrebreather admission. Patient does have wheezing on exam. Patient doesn't doesn't usually wear oxygen at home. Patient does have history of coronary artery disease with a previous myocardial infarction and stenting to LAD and patient had a congestive heart failure with EF around 20-25% because of which I repeated the echocardiogram which showed ejection fraction of 40 with 50%. Patient is feeling dry patient is on diuretics at home patient says his medications need to be changed. Patient does have dry skin and itchiness all the time because of the diuretics. Patient is comparing of cough without any significant sputum production chest x-ray did not show any pneumonia. REVIEW OF SYSTEMS: CONSTITUTIONAL: No fever, no malaise, no fatigue. HEENT: No recent visual problems or hearing problems. Denied any sore throat. CARDIOVASCULAR: No chest pain, orthopnea, PND, no palpitations, no syncope. PULMONARY: As mentioned in HPI GASTROINTESTINAL: No diarrhea, no nausea, no vomiting, no abdominal pain. NEUROLOGICAL: No headaches, no weakness, no numbness. HEMATOLOGICAL: Denies any bleeding or petechiae. GENITOURINARY: Denies any burning micturition, frequency, or urgency. MUSCULOSKELETAL/RHEUMATOLOGICAL: Denies any joint pain, swelling, or any muscle pain. ENDOCRINE: Denies any polyuria or polydipsia. The rest of the 14-point review of systems is negative. PHYSICAL EXAMINATION: GENERAL: The patient is alert and oriented x3, not in any acute distress. Thin built HEENT: Pupils are round and equally reacting to light. EOMI. No scleral icterus. No conjunctival pallor. Normocephalic, atraumatic. No pharyngeal erythema. No thyromegaly. Does have dry skin and dry mucous membranes CARDIOVASCULAR: S1 and S2 present. No murmurs, rubs, or gallops. PULMONARY: Significant expiratory wheezing and limited air entry bilateral lung ricardo ABDOMEN: Soft, nontender, nondistended, normoactive bowel sounds. No palpable organomegaly. MUSCULOSKELETAL: No joint swelling or deformity. EXTREMITIES: No cyanosis, clubbing, or pedal edema. NEUROLOGICAL: Gross neurological examination did not reveal any focal deficits. SKIN: No rashes. Assessment and plan -Acute hypoxic and hypercapnic respiratory failure secondary to COPD exacerbation patient usually doesn't wear any oxygen at home continue with systemic steroids inhalational treatments. Patient will be transitioned to nasal cannula oxygen. -Leukocytosis secondary to systemic steroids are reactive secondary to bronchitis patient doesn't have any evidence of pneumonia at this time -Can start failure chronic systolic dysfunction EF of around 20% which improved to 40 with 50% patient probably will not require any diuretics patient probably will need IV fluids at this time. -Chronic kidney disease stage III with creatinine of 1.6. May be in acute competent once we discontinue diuretics the function may actually improve -Coronary artery disease with stents to LAD -Type 2 diabetes mellitus blood sugars are expected to go because of systemic steroids DVT prophylaxis: Subcutaneous heparin Past Medical History Past Medical History: Coronary Artery Disease (CAD), COPD, Diabetes Mellitus, H ypertension, Myocardial Infarction ([place]) Additional Past Medical History / Comment(s): Rheumatic fever, COPD, coronary artery disease, diabetes mellitus, CHF, chronic kidney disease. The patient also has a remote history of myocardial infarction back in 2006. He has a stent in his LAD. Last Myocardial Infarction Date:: 12/25/16 History of Any Multi-Drug Resistant Organisms: None Reported Past Surgical History: Heart Catheterization With Stent Past Anesthesia/Blood Transfusion Reactions: No Reported Reaction Date of Last Stent Placement:: 12/25/16 Past Psychological History: No Psychological Hx Reported Smoking Status: Never smoker Past Alcohol Use History: None Reported Past Drug Use History: None Reported Medications and Allergies Home Medications Medication Instructions Recorded Confirmed Type Aspirin [Adult Low Dose Aspirin EC] 81 mg PO DAILY #30 tablet. 12/28/16 08/21/21 Rx Atorvastatin [Lipitor] 80 mg PO HS #30 tab 12/28/16 08/21/21 Rx lisinopriL [Zestril] 5 mg PO HS #60 tab 12/28/16 08/21/21 Rx Allopurinol [Zyloprim] 100 mg PO DAILY 06/25/21 08/21/21 History Cholecalciferol [Vitamin D3 (25 25 mcg PO DAILY 06/25/21 08/21/21 History Mcg = 1000 Iu)] Furosemide [Lasix] 20 mg PO DAILY 06/25/21 08/21/21 History Glimepiride [Amaryl] 1 mg PO AC-BRKFST 06/25/21 08/21/21 History Spironolactone [Aldactone] 12.5 mg PO DAILY 06/25/21 08/21/21 History Albuterol Nebulized [Ventolin 2.5 mg INHALATION RT-QID PRN 08/21/21 08/21/21 History Nebulized] Metoprolol Tartrate [Lopressor] 25 mg PO TID #90 tab 08/22/21 Rx Allergies Allergy/AdvReac Type Severity Reaction Status Date / Time ibuprofen AdvReac Mild Abdominal Verified 08/21/21 09:26 Pain Physical Exam Vitals: Vital Signs Temp Pulse Pulse Pulse Resp BP Pulse Ox 08/22/21 09:06 104 H 08/22/21 08:54 100 08/22/21 07:00 97.8 F 99 16 112/65 94 L 08/22/21 01:54 98.6 F 99 16 106/66 94 L 08/21/21 23:37 18 08/21/21 21:59 100 08/21/21 21:48 100 08/21/21 20:00 18 08/21/21 19:47 98.3 F 105 H 18 109/70 98 08/21/21 18:34 94 L 08/21/21 15:00 98.2 F 60 18 156/89 97 Intake and Output 08/21/21 08/22/21 08/22/21 22:59 06:59 14:59 Intake Total 240 236 Balance 240 236 Intake: Oral 240 236 Other: # Voids 3 3 Results CBC & Chem 7: 08/21/21 03:48 08/21/21 03:48 Labs: Abnormal Lab Results - Last 24 Hours (Table) 08/21/21 08/21/21 08/22/21 Range/Units 17:05 20:25 07:56 POC Glucose (mg/dL) 248 H 263 H 180 H (75-99) mg/dL 08/22/21 Range/Units 12:56 POC Glucose (mg/dL) 177 H (75-99) mg/dL Thrombosis Risk Factor Assmnt - Choose All That Apply Any of the Below Risk Factors Present?: No Each Risk Factor Represents 2 Points: Age 61-74 years Other congenital or acquired thrombophilia - If yes, enter type in comment: No Thrombosis Risk Factor Assessment Total Risk Factor Score: 2 Thrombosis Risk Factor Assessment Level: Low Risk
--- NOTE | 2021-08-22 14:31 | P.PN ---
Subjective Progress Note Date: 08/22/21 70-year-old male patient home a presented to the hospital because of worsening shortness of breath. We were asked to evaluate this patient because of shortness of breath and COPD. He is known to have a cardiac history with cardiomyopathy and poor ejection fraction. He presented to the ED because of in creased dyspnea. He also had some cough and congestion. No reported fever or chills. No exposure to COVID-19 and the patient's COVID-19 testing came back negative. His white cell count is at 14.6 with hemoglobin of 15.7. His creatinine was at 1.56 with a BUN of 34. Rest of the electrodes were normal. LFTs were normal. ProBNP level was 196. Troponin was negative. Currently on 100% on a beta facemask with a pulse ox of 100%. BP is 149/87. He is afebrile. His chest x-ray revealed no acute abnormalities. No airspace consolidations. Note that the patient has nasal polyps. He prefers facemasks over nasal cannula. He doesn't have home oxygen. He uses Symbicort at home. He has a n ebulizer at home and utilizes pro-air rescue inhaler on as-needed basis. No previous pneumonias and respiratory failure because of COPD related complications. No childhood asthma. History of any chest pain. No swelling lower extremities. No altered mentation. 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 He has not received COVID-19 vaccination On 09/01/2010 1, the patient is feeling better and is less short of breath. He is currently on room air oxygen. Less bronchospastic and wheezy. No new complaints. He remains on bronchodilators. He remains on IV Solu Medrol dose of been tapered to 40 mg every 12 hours. Objective - Vital Signs Vital signs: Vital Signs Temp 97.8 F 08/22/21 07:00 Pulse 104 H 08/22/21 09:06 Resp 16 08/22/21 07:00 BP 112/65 08/22/21 07:00 Pulse Ox 94 L 08/22/21 07:00 Intake & Output 08/21/21 08/22/21 08/22/21 18:59 06:59 18:59 Intake Total 240 236 Balance 240 236 Intake: Oral 240 236 Other: # Voids 2 3 2 - Exam Gen. appearance, comfortable likely distress, pulse ox is 98% on room air oxygen Head exam was generally normal. There was no scleral icterus or corneal arcus. Mucous membranes were moist. Neck was supple and without jugular venous distension, thyromegaly, or carotid bruits. Carotids were easily palpable bilaterally. There was no adenopathy. Patient is edentulous Lungs sounds are diminished and the patient scattered expiratory wheezes throughout the lung his bilaterally Cardiac exam revealed the PMI to be normally situated and sized. The rhythm was regular and no extrasystoles were noted during several minutes of auscultation. The first and second heart sounds were normal and physiologic splitting of the second heart sound was noted. There were no murmurs, rubs, clicks, or gallops. Abdominal exam revealed normal bowel sounds. The abdomen was soft, non-tender, and without masses, organomegaly, or appreciable enlargement of the abdominal aorta. Examination of the extremities revealed easily palpable radial, femoral and pedal pulses. There was no cyanosis, clubbing or edema. Examination of the skin revealed no evidence of significant rashes, suspicious appearing nevi or other concerning lesions. Neurologically, the patient is awake and alert and the patient does not have any focal neurological deficit. Cranial nerves are essentially intact. - Labs CBC & Chem 7: 08/21/21 03:48 08/21/21 03:48 Labs: Abnormal Lab Results - Last 24 Hours (Table) 08/21/21 08/21/21 08/22/21 Range/Units 17:05 20:25 07:56 POC Glucose (mg/dL) 248 H 263 H 180 H (75-99) mg/dL 08/22/21 Range/Units 12:56 POC Glucose (mg/dL) 177 H (75-99) mg/dL Assessment and Plan Plan: 1 acute COPD exacerbation with secondary shortness of breath, no significant hypoxemia, clinically improved 2 nasal polyposis 3 coronary artery disease with previous history of myocardial infarction and stenting of the LAD 4 history of ischemic cardiomyopathy with an ejection fraction of 20 to 25%. No signs of any decompensated heart failure at this point in time 5 hypertension 6 diabetes mellitus 7 history of rheumatic fever 8 chronic kidney disease, creatinine stable at 1.56 and GFR of 45 Plan Utilize DuoNeb nebulized treatments around the clock IV Solu-Medrol 40 mg every 8 hours, sooner this patient a prednisone burst taper and discharged the next 24-48 hours Insulin sliding scale insulin coverage for blood sugar control FiO2 has been weaned down to maintain a saturation above 90% on room air Resume all medication Outpatient PFT Outpatient adjustment of maintenance respiratory medications. Currently on Symbicort, Proventil rescue inhaler and a nebulizer We'll follow. The patient now vaccinated for COVID-19. He has been exposed to COVID-19 back in February 2021 We'll sign off the case
--- NOTE | 2021-08-22 14:49 | P.DS ---
Providers Date of admission: 08/21/21 04:51 Attending physician: Carey Perez Consults: 08/21/21 11:02 Consult Physician Routine Consulting Provider: Paris Umaña Consult Reason/Comments: COPD exacerbation/Asthma Do you want consulting provider notified?: Yes Primary care physician: [facility] Hospital Course: Patient is a 70-year-old male pressures of breath and was started on 100% nonrebreather admission. Patient does have wheezing on exam. Patient doesn't doesn't usually wear oxygen at home. Patient does have history of coronary artery disease with a previous myocardial infarction and stenting to LAD and patient had a congestive heart failure with EF around 20-25% because of which I repeated the echocardiogram which showed ejection fraction of 40 with 50%. Patient is feeling dry patient is on diuretics at home patient says his medications need to be changed. Patient does have dry skin and itchiness all the time because of the diuretics. Patient is comparing of cough without any significant sputum production chest x-ray did not show any pneumonia. 08/22/2021 Patient is clinically doing well at this time patient is respiratory status improved significantly wanted to go home. Patient will be discharged on the prednisone taper patient will be discharged on metoprolol 25 mg 3 times a day. PHYSICAL EXAMINATION: GENERAL: The patient is alert and oriented x3, not in any acute distress. Thin built HEENT: Pupils are round and equally reacting to light. EOMI. No scleral icterus. No conjunctival pallor. Normocephalic, atraumatic. No pharyngeal erythema. No thyromegaly. Does have dry skin and dry mucous membranes CARDIOVASCULAR: S1 and S2 present. No murmurs, rubs, or gallops. PULMONARY: Significant expiratory wheezing and limited air entry bilateral lung ricardo ABDOMEN: Soft, nontender, nondistended, normoactive bowel sounds. No palpable organomegaly. MUSCULOSKELETAL: No joint swelling or deformity. EXTREMITIES: No cyanosis, clubbing, or pedal edema. NEUROLOGICAL: Gross neurological examination did not reveal any focal deficits. SKIN: No rashes. Assessment and plan -Acute hypoxic and hypercapnic respiratory failure secondary to COPD exacerbati on patient usually doesn't wear any oxygen at home continue with systemic steroids inhalational treatments. Patient will be transitioned to nasal cannula oxygen. -Leukocytosis secondary to systemic steroids are reactive secondary to bronchitis patient doesn't have any evidence of pneumonia at this time -Can start failure chronic systolic dysfunction EF of around 20% which improved to 40 with 50% patient probably will not require any diuretics patient probably will need IV fluids at this time. -Chronic kidney disease stage III with creatinine of 1.6. May be in acute competent once we discontinue diuretics the function may actually improve -Coronary artery disease with stents to LAD -Type 2 diabetes mellitus blood sugars are expected to go because of systemic steroids DVT prophylaxis: Subcutaneous heparin Patient Condition at Discharge: Good Plan - Discharge Summary Discharge Rx Participant: No New Discharge Prescriptions: New Metoprolol Tartrate [Lopressor] 25 mg PO TID #90 tab Tiotropium [place] [Spiriva] 1 cap INHALATION DAILY #1 each Budesonide-Formot 160-4.5 Mcg [Symbicort 160-4.5 Mcg Inhaler] 2 puff INHALATION BID #10.2 gm Albuterol Inhaler [Ventolin Hfa Inhaler] 2 puff INHALATION RT-QID PRN #18 gm PRN Reason: Shortness Of Breath Or Wheezing predniSONE 10 mg PO DAILY #30 tab Continue Aspirin [Adult Low Dose Aspirin EC] 81 mg PO DAILY #30 tablet. Atorvastatin [Lipitor] 80 mg PO HS #30 tab lisinopriL [Zestril] 5 mg PO HS #60 tab Allopurinol [Zyloprim] 100 mg PO DAILY Glimepiride [Amaryl] 1 mg PO AC-BRKFST Cholecalciferol [Vitamin D3 (25 Mcg = 1000 Iu)] 25 mcg PO DAILY Spironolactone [Aldactone] 12.5 mg PO DAILY Furosemide [Lasix] 20 mg PO DAILY Albuterol Nebulized [Ventolin Nebulized] 2.5 mg INHALATION RT-QID PRN PRN Reason: Shortness Of Breath Discontinued carvediloL [Coreg] 3.125 mg PO AC-BID Discharge Medication List Aspirin [Adult Low Dose Aspirin EC] 81 mg PO DAILY #30 tablet. 12/28/16 [Rx] Atorvastatin [Lipitor] 80 mg PO HS #30 tab 12/28/16 [Rx] lisinopriL [Zestril] 5 mg PO HS #60 tab 12/28/16 [Rx] Allopurinol [Zyloprim] 100 mg PO DAILY 06/25/21 [History] Cholecalciferol [Vitamin D3 (25 Mcg = 1000 Iu)] 25 mcg PO DAILY 06/25/21 [History] Furosemide [Lasix] 20 mg PO DAILY 06/25/21 [History] Glimepiride [Amaryl] 1 mg PO AC-BRKFST 06/25/21 [History] Spironolactone [Aldactone] 12.5 mg PO DAILY 06/25/21 [History] Albuterol Nebulized [Ventolin Nebulized] 2.5 mg INHALATION RT-QID PRN 08/21/21 [History] Albuterol Inhaler [Ventolin Hfa Inhaler] 2 puff INHALATION RT-QID PRN #18 gm 08/22/21 [Rx] Budesonide-Formot 160-4.5 Mcg [Symbicort 160-4.5 Mcg Inhaler] 2 puff INHALATION BID #10.2 gm 08/22/21 [Rx] Metoprolol Tartrate [Lopressor] 25 mg PO TID #90 tab 08/22/21 [Rx] Tiotropium [place] [Spiriva] 1 cap INHALATION DAILY #1 each 08/22/21 [Rx] predniSONE 10 mg PO DAILY #30 tab 08/22/21 [Rx] Follow up Appointment(s)/Referral(s): Alejandra Dumont MD [Primary Care Provider] - 3 Days Paris Umaña MD [STAFF PHYSICIAN] - 1 Week Discharge Disposition: HOME SELF-CARE
[2021-08-22 14:53] VITALS: BP 125/57; PULSE 92; RESP 17; TEMP 97.5
[2021-08-22] MEDS ORDERED: METOPROLOL TARTRATE 25 MG TAB PO SCH (16:00)
== END 2021-08-22 15:20 | disposition home or self-care (01) ==
LOC: EC 02:47 → 6NMEDSUR 04:51
PROVIDERS: ADMIT Hospitalist; ATTEND Hospitalist
DX: J44.1 Chronic obstructive pulmonary disease with (acute) exacerbation (principal); J45.902 Unspecified asthma with status asthmaticus; Z20.822 Contact with and (suspected) exposure to COVID-19; J96.01 Acute respiratory failure with hypoxia; J96.02 Acute respiratory failure with hypercapnia; D72.829 Elevated white blood cell count, unspecified; E11.22 Type 2 diabetes mellitus with diabetic chronic kidney disease; E78.5 Hyperlipidemia, unspecified; I13.0 Hypertensive heart and chronic kidney disease with heart failure and stage 1 through stage 4 chronic kidney disease, or unspecified chronic kidney disease; I25.10 Atherosclerotic heart disease of native coronary artery without angina pectoris; I25.2 Old myocardial infarction; I25.5 Ischemic cardiomyopathy; I45.10 Unspecified right bundle-branch block; I50.22 Chronic systolic (congestive) heart failure; J33.9 Nasal polyp, unspecified; N18.2 Chronic kidney disease, stage 2 (mild); T38.0X5A Adverse effect of glucocorticoids and synthetic analogues, initial encounter; Z79.82 Long term (current) use of aspirin; Z79.84 Long term (current) use of oral hypoglycemic drugs; Z79.899 Other long term (current) drug therapy; Z87.891 Personal history of nicotine dependence; Z95.5 Presence of coronary angioplasty implant and graft
CPT/HCPCS: 96376 ×3; 96361 ×2; 96374; 99285; 36415; 94640 ×3; 93005; 83880; 80053; 82550; 83605; 83735; 84484; 85025; 87635; 71045; G0378 ×2; C8929; J2920 ×2; J2930; J0456; Q9950; 93306

== ENCOUNTER → 2021-12-24 | Outpatient (CLI) | payer MEDICARE ==
--- NOTE | 2021-12-24 09:56 | US ---
EXAMINATION TYPE: US kidneys/renal and bladder DATE OF EXAM: 12/24/2021 COMPARISON: NONE CLINICAL HISTORY: R94.4 ABN KIDNEY FUNCTIONS. abnormal kidney function EXAM MEASUREMENTS: Right Kidney: 10.9 x 5.1 x 5.1 cm Left Kidney: 10.7 x 5.6 x 4.1 cm Right Kidney: no evidence of hydronephrosis Left Kidney: no evidence of hydronephrosis Bladder: not fully distended Bilateral Jets seen: no There is no evidence for hydronephrosis at this point in time. No nephrolithiasis is seen. No fatoumata s are identified. The urinary bladder is anechoic. Bilateral ureteral jets are seen. IMPRESSION: No distinct sonographic abnormalities seen.
== END | disposition home or self-care (01) ==
LOC: RADUSWWP 09:26
PROVIDERS: ATTEND Family Medicine
DX: R94.4 Abnormal results of kidney function studies (principal)
CPT/HCPCS: 76770

== ENCOUNTER 2023-03-15 17:50 | Emergency (ER) | payer MEDICARE ==
[2023-03-15] MEDS ORDERED: SODIUM CHLORIDE 0.9% 1,000 ML IV STA (19:55)
[2023-03-15] MEDS ORDERED: PANTOPRAZOLE 40 MG/10 ML VIAL IVP STA (19:55)
[2023-03-15] MEDS ORDERED: ONDANSETRON 4 MG/2 ML VIAL IVP STA (19:55)
[2023-03-15] MEDS ORDERED: MORPHINE SULFATE 4 MG/ML SYRINGE IVP STA (19:55)
--- NOTE | 2023-03-15 19:57 | ED ---
Abdominal Pain HPI - General Chief Complaint: Abdominal Pain Stated Complaint: Abd pain Time Seen by Provider: 03/15/23 19:55 Source: patient, RN notes reviewed, old records reviewed Mode of arrival: ambulatory Limitations: no limitations - History of Present Illness Initial Comments: This is a 72-year-old male to the emergency department for evaluation patient resents today for evaluation of abdominal pain pubic to periumbilical abdominal pain. Urination feels like he cannot completely finishes his void. Patient is mild nausea but no fevers no diarrhea no other complaints. Patient mainly is complaining today of abdominal pain with history of heart disease. MD Complaint: abdominal pain -: hour(s) Location: periumbilical, suprapubic Radiation: suprapubic Migration to: periumbilical, suprapubic, other Severity: moderate Severity scale (1-10): 7 Quality: fullness, sharp Consistency: constant Improves With: nothing Worsens With: nothing Associated Symptoms: denies other symptoms Treatments Prior to Arrival: other (0) - Related Data Home Medications Medication Instructions Recorded Confirmed Cholecalciferol [Vitamin D3 (25 25 mcg PO DAILY 06/25/21 03/15/23 Mcg = 1000 Iu)] Furosemide [Lasix] 20 mg PO Q48H 06/25/21 03/15/23 Glimepiride [Amaryl] 1 mg PO W/BRKFST 06/25/21 03/15/23 allopurinoL [Zyloprim] 100 mg PO HS 06/25/21 03/15/23 Budesonide/Formoterol Fumarate 2 puff INHALATION RT-BID 03/15/23 03/15/23 [Symbicort 80-4.5 Mcg Inhaler] calcitrioL [Calcitriol] 0.25 mcg PO LEE 03/15/23 03/15/23 Previous Rx's Medication Instructions Recorded Aspirin [Adult Low Dose Aspirin EC] 81 mg PO DAILY #30 tablet. 12/28/16 Atorvastatin [Lipitor] 80 mg PO HS #30 tab 12/28/16 Albuterol Inhaler [Ventolin Hfa 2 puff INHALATION RT-QID PRN #18 gm 08/22/21 Inhaler] Metoprolol Tartrate [Lopressor] 25 mg PO TID #90 tab 08/22/21 Allergies Allergy/AdvReac Type Severity Reaction Status Date / Time ibuprofen AdvReac Mild Abdominal Verified 03/15/23 21:45 Pain Review of Systems ROS Statement: Those systems with pertinent positive or pertinent negative responses have been documented in the HPI. ROS Other: All systems not noted in ROS Statement are negative. Past Medical History Past Medical History: Coronary Artery Disease (CAD), COPD, Diabetes Mellitus, Hypertension, Myocardial Infarction (DE) Additional Past Medical History / Comment(s): Rheumatic fever, COPD, coronary artery disease, diabetes mellitus, CHF, chronic kidney disease. The patient also has a remote history of myocardial infarction back in 2006. He has a stent in his LAD. Last Myocardial Infarction Date:: 12/25/16 History of Any Multi-Drug Resistant Organisms: None Reported Past Surgical History: Heart Catheterization With Stent Past Anesthesia/Blood Transfusion Reactions: No Reported Reaction Date of Last Stent Placement:: 12/25/16 Past Psychological History: No Psychological Hx Reported Smoking Status: Never smoker Past Alcohol Use History: None Reported Past Drug Use History: None Reported General Exam Limitations: no limitations General appearance: alert, in no apparent distress Head exam: Present: atraumatic, normocephalic, normal inspection Eye exam: Present: normal appearance, PERRL, EOMI. Absent: scleral icterus, conjunctival injection, periorbital swelling ENT exam: Present: normal exam, mucous membranes moist Neck exam: Present: normal inspection. Absent: tenderness, meningismus, lymphadenopathy Respiratory exam: Present: normal lung sounds bilaterally. Absent: respiratory distress, wheezes, rales, rhonchi, stridor Cardiovascular Exam: Present: regular rate, normal rhythm, normal heart sounds. Absent: systolic murmur, diastolic murmur, rubs, gallop, clicks GI/Abdominal exam: Present: soft, tenderness, normal bowel sounds. Absent: distended, guarding, rebound, rigid Extremities exam: Present: normal inspection, full ROM, normal capillary refill. Absent: tenderness, pedal edema, joint swelling, calf tenderness Back exam: Present: normal inspection Neurological exam: Present: alert, oriented X3, CN II-XII intact Psychiatric exam: Present: normal affect, normal mood Skin exam: Present: warm, dry, intact, normal color. Absent: rash Course Vital Signs 03/15/23 03/15/23 03/15/23 18:34 19:56 20:51 Temperature 97.6 F Pulse Rate 90 87 86 Respiratory 20 18 16 Rate Blood Pressure 130/73 111/87 119/74 O2 Sat by Pulse 94 L 94 L 94 L Oximetry - Reevaluation(s) Reevaluation #1: 03/15/23 22:11 Medical record is reviewed Reevaluation #2: 03/15/23 22:11 Patient's pain is improved here in the ER Patient is able to urinate here without difficulty is no full void, patient does have post for residual around 100 Reevaluation #3: 03/15/23 22:12 Patient informed results questions answered Reevaluation #4: 03/15/23 22:12 Was pt. sent in by a medical professional or institution? @ -no Did you speak to anyone other than the patient for history? @ -no Did you review nursing and triage notes? @ -agree Were old charts reviewed? @ -yno Differential Diagnosis? @ -abdominal pain EKG interpreted by me (3pts min.)? @ -no X-rays interpreted by me (1pt min.)? @ -no CT interpreted by me (1pt min.)? @ -no U/S interpreted by me (1pt. min.)? @ -no What testing was considered but not performed? (CT, X-rays, U/S, labs)? Why? @ -no What meds were considered but not given? Why? @ -no Did you discuss the management of the patient with other professionals? @ -no Did you reconcile home meds? @ -no Was smoking cessation discussed for >3mins.? @ -no Was critical care preformed (if so, how long)? @ -no Were there social determinants of health that impacted care today? How? (Homelessness, low income, unemployed, alcoholism, drug addiction, transportati on, low edu. Level, literacy, decrease access to med. care, care home, rehab)? @ -no Was there de-escalation of care discussed even if they declined? (Discuss DNR or withdrawal of care, Hospice)? @ -no What co-morbidities impacted this encounter? (DM, HTN, Smoking, COPD, CAD, Cancer, CVA, Hep., AIDS, mental health diagnosis, sleep apnea, morbid obesity)? @ -no Was patient admitted / discharged? @ -dc Undiagnosed new problem with uncertain prognosis? @ -no Drug Therapy requiring intensive monitoring for toxicity (Heparin, Nitro, Insulin, Cardizem)? @ -no Were any procedures done? @ -no Diagnosis/symptom? @ -enlarged prostate, abdominal pain, urinary retention Acute, or Chronic, or Acute on Chronic? @ -acute Uncomplicated (without systemic symptoms) or Complicated (systemic symptoms)? @ -uncomplicated Side effects of treatment? @ -no Exacerbation, Progression, or Severe Exacerbation] @ -no Poses a threat to life or bodily function? @ -no Reevaluation #5: 03/15/23 22:12 Differential Abdominal Pain Men: Appendicitis, cholecystitis, diverticulosis, ischemic bowel, pancreatitis, hepatitis, UTI, gastroenteritis, AAA, incarcerated hernia, bowel obstruction, constipation, inflammatory bowel, hepatitis, peptic ulcer disease, splenic i nfarction, perforated viscus, testicular torsion, this is not meant to be an all-inclusive list Medical Decision Making - Medical Decision Making -year-old male DF for evaluation of abdominal pain. Distended urinary bladder with enlarged prostate, no acute findings on CT of the abdomen and pelvis. Labwork is normal patient can be discharged home he is able to urinate without 100 mL postvoid residual - Lab Data Result diagrams: 03/15/23 20:17 03/15/23 20:17 Lab Results 03/15/23 03/15/23 03/15/23 Range/Units 20:17 20:17 20:19 WBC 11.3 H (3.8-10.6) k/uL RBC 6.28 H (4.30-5.90) m/uL Hgb 17.9 H (13.0-17.5) gm/dL Hct 53.9 H (39.0-53.0) % MCV 85.8 (80.0-100.0) fL MCH 28.5 (25.0-35.0) pg MCHC 33.2 (31.0-37.0) g/dL RDW 14.3 (11.5-15.5) % Plt Count 166 (150-450) k/uL MPV 7.8 Neutrophils % 54 % Lymphocytes % 16 % Monocytes % 5 % Eosinophils % 25 % Basophils % 0 % Neutrophils # 6.0 (1.3-7.7) k/uL Lymphocytes # 1.7 (1.0-4.8) k/uL Monocytes # 0.5 (0-1.0) k/uL Eosinophils # 2.8 H (0-0.7) k/uL Basophils # 0.0 (0-0.2) k/uL Sodium 137 (137-145) mmol/L Potassium 3.5 (3.5-5.1) mmol/L Chloride 101 (98-107) mmol/L Carbon Dioxide 25 (22-30) mmol/L Anion Gap 11 mmol/L BUN 19 (9-20) mg/dL Creatinine 1.30 H (0.66-1.25) mg/dL Est GFR (CKD-EPI)AfAm 64 (>60 ml/min/1.73 sqM) Est GFR (CKD-EPI)NonAf 55 (>60 ml/min/1.73 sqM) Glucose 209 H (74-99) mg/dL POC Glucose (mg/dL) 185 H (70-110) mg/dL POC Glu Urogynecology Physician Bindu Davis Calcium 8.6 (8.4-10.2) mg/dL Phosphorus 2.9 (2.5-4.5) mg/dL Magnesium 1.8 (1.6-2.3) mg/dL Total Bilirubin 1.2 (0.2-1.3) mg/dL AST 22 (17-59) U/L ALT 20 (4-49) U/L Alkaline Phosphatase 98 (38-126) U/L Total Protein 6.3 (6.3-8.2) g/dL Albumin 3.8 (3.5-5.0) g/dL Amylase 65 (30-110) U/L Lipase 150 (23-300) U/L - Radiology Data Radiology results: report reviewed (CT head and pelvis shows enlarged prostate), image reviewed Disposition Clinical Impression: Abdominal pain, Prostate hypertrophy Disposition: HOME SELF-CARE Condition: Good Instructions (If sedation given, give patient instructions): Abdominal Pain (ED), Enlarged Prostate (BPH) (ED) Is patient prescribed a controlled substance at d/c from ED?: No Referrals: Alejandra Dumont MD [Primary Care Provider] - 1-2 days Montana Isaacs MD [STAFF PHYSICIAN] - 1-2 days
[2023-03-15 20:21] LABS: Glucose,Whole Blood 185 mg/dL (70-110)
[2023-03-15 20:31] LABS: Basophils % (A) 0 %; Eosinophils # (A) 2.8 k/uL (0-0.7); Eosinophils % (A) 25 %; HCT 53.9 % (39.0-53.0); HGB 17.9 gm/dL (13.0-17.5); Lymphocytes # (A) 1.7 k/uL (1.0-4.8); Lymphocytes % (A) 16 %; MCH 28.5 pg (25.0-35.0); MCHC 33.2 g/dL (31.0-37.0); MCV 85.8 fL (80.0-100.0); Mean Platelet Volume 7.8; Monocytes # (A) 0.5 k/uL (0-1.0); Monocytes % (A) 5 %; Neutrophils % (A) 54 %; Platelet Count 166 k/uL (150-450); RBC 6.28 m/uL (4.30-5.90); RDW 14.3 % (11.5-15.5); WBC 11.3 k/uL (3.8-10.6)
[2023-03-15 20:46] LABS: Albumin 3.8 g/dL (3.5-5.0); Calcium 8.6 mg/dL (8.4-10.2); Magnesium 1.8 mg/dL (1.6-2.3); Phosphorus 2.9 mg/dL (2.5-4.5); Potassium 3.5 mmol/L (3.5-5.1); Total Bilirubin 1.2 mg/dL (0.2-1.3); Total Protein 6.3 g/dL (6.3-8.2)
[2023-03-15 20:55] VITALS: RESP 16
--- NOTE | 2023-03-15 21:29 | CT ---
EXAMINATION TYPE: CT abdomen pelvis wo con CT DLP: 898.2 mGycm, Automated exposure control for dose reduction was used. DATE OF EXAM: 03/15/2023 9:00 PM COMPARISON: None CLINICAL INDICATION:Male, 72 years old with history of abdominal pain; abdominal pain x1 week TECHNIQUE: Axial CT of the abdomen and pelvis. Sagittal and coronal reformats were created on a [employer] workstation. Contrast used: None Oral contrast used: without Oral Contrast FINDINGS: LOWER CHEST: Some bronchiectasis within the left lung base. ABDOMEN LIVER: Unremarkable GALLBLADDER AND BILE DUCTS: Unremarkable. PANCREAS: Unremarkable. SPLEEN: Small splenule is present. ADRENAL GLANDS: Unremarkable. KIDNEYS AND URETERS: No evidence of hydronephrosis or renal calculus. The ureters are unremarkable. Equal bilateral perinephritic fat stranding changes. PELVIS BLADDER: Distended urinary bladder. REPRODUCTIVE: Prostate is enlarged in size measuring 5.7 cm in transverse dimension. ABDOMEN & PELVIS STOMACH AND BOWEL: No evidence of bowel obstruction. Scattered colonic diverticula. The appendix is n ormal. PERITONEUM/RETROPERITONEUM: No evidence of pneumoperitoneum or free fluid. VASCULATURE: No evidence of aortic aneurysm. MUSCULOSKELETAL: No acute osseous abnormalities LYMPH NODES: No gross evidence for lymphadenopathy. SOFT TISSUE/ABDOMINAL WALL: Bilateral fat-containing inguinal hernias. IMPRESSION: 1. No definitive acute abdominal process. 2. Colonic diverticulosis without evidence for active diverticulitis. 3. Prostatomegaly with distended urinary bladder correlate for chronic bladder outlet obstruction, c orrelate with serum PSA. 4. Normal appendix. No obstructive uropathy.
[2023-03-15 22:23] VITALS: BP 132/86; PULSE 79; TEMP 98.3
== END 2023-03-15 22:23 | disposition home or self-care (01) ==
LOC: EC 17:50
DX: N40.0 Benign prostatic hyperplasia without lower urinary tract symptoms (principal); R10.9 Unspecified abdominal pain; I25.10 Atherosclerotic heart disease of native coronary artery without angina pectoris; J44.9 Chronic obstructive pulmonary disease, unspecified; I13.0 Hypertensive heart and chronic kidney disease with heart failure and stage 1 through stage 4 chronic kidney disease, or unspecified chronic kidney disease; E11.22 Type 2 diabetes mellitus with diabetic chronic kidney disease; I50.9 Heart failure, unspecified; N18.9 Chronic kidney disease, unspecified; I25.2 Old myocardial infarction; Z88.6 Allergy status to analgesic agent; Z79.51 Long term (current) use of inhaled steroids; Z79.899 Other long term (current) drug therapy
CPT/HCPCS: 36415; 80053; 82150; 83690; 83735; 84100; 85025; 74176; 99284; 96374; 96375 ×2; 96361; J2270; J2405; C9113

== ENCOUNTER 2023-04-25 04:06 | Emergency (ER) | payer MEDICARE ==
[2023-04-25 04:11] VITALS: TEMP 97.8
[2023-04-25 05:52] VITALS: PULSE 68; RESP 18
--- NOTE | 2023-04-25 06:34 | ED ---
General Adult HPI - General Chief complaint: Overdose Stated complaint: Took 2 heart meds by accident Time Seen by Provider: 04/25/23 04:24 Source: patient, RN notes reviewed, old records reviewed Mode of arrival: ambulatory Limitations: no limitations - History of Present Illness Initial comments: Patient is a 72-year-old male who presents emergency department over concern for possible accidental overdose of metoprolol. Accidentally took 2 tablets of his 25 mg metoprolol, as he fell sleep and forget to take his evening dose and afternoon dose last night. States he takes it 3 times a day. Missed his afternoon dose, and when he woke up sleepy did take his evening dose, he accidentally took both the afternoon dose that he missed in the evening dose at the same time. Read online that he should seek medical attention which is why presents currently. Denies any symptoms. Denies any lightheadedness, chest pain, shortness of breath. Denies any fainting spells. His no other acute complaints at this time. Presents for evaluation.Medications between 3:30 and 4 AM. Took a total of 50 mg oral metoprolol. - Related Data Home Medications Medication Instructions Recorded Confirmed Cholecalciferol [Vitamin D3 (25 25 mcg PO DAILY 06/25/21 03/15/23 Mcg = 1000 Iu)] Furosemide [Lasix] 20 mg PO Q48H 06/25/21 03/15/23 Glimepiride [Amaryl] 1 mg PO W/BRKFST 06/25/21 03/15/23 allopurinoL [Zyloprim] 100 mg PO HS 06/25/21 03/15/23 Budesonide/Formoterol Fumarate 2 puff INHALATION RT-BID 03/15/23 03/15/23 [Symbicort 80-4.5 Mcg Inhaler] calcitrioL [Calcitriol] 0.25 mcg PO LEE 03/15/23 03/15/23 Previous Rx's Medication Instructions Recorded Aspirin [Adult Low Dose Aspirin EC] 81 mg PO DAILY #30 tablet. 12/28/16 Atorvastatin [Lipitor] 80 mg PO HS #30 tab 12/28/16 Albuterol Inhaler [Ventolin Hfa 2 puff INHALATION RT-QID PRN #18 gm 08/22/21 Inhaler] Metoprolol Tartrate [Lopressor] 25 mg PO TID #90 tab 08/22/21 Allergies Allergy/AdvReac Type Severity Reaction Status Date / Time ibuprofen AdvReac Mild Abdominal Verified 03/15/23 21:45 Pain Review of Systems ROS Statement: Those systems with pertinent positive or pertinent negative responses have been documented in the HPI. Review of Systems: CONST: Denies fever EYES: Denies blurry vision ENT: Denies nasal congestion C/V: Denies Chest pain RESP: Denies shortness of breath GI: Denies abdominal pain : Denies dysuria SKIN: Denies rash. MSK: Denies joint pain. NEURO: Denies headache ROS Other: All systems not noted in ROS Statement are negative. Past Medical History Past Medical History: Coronary Artery Disease (CAD), COPD, Diabetes Mellitus, Hypertension, Myocardial Infarction ([place]) Additional Past Medical History / Comment(s): Rheumatic fever, COPD, coronary artery disease, diabetes mellitus, CHF, chronic kidney disease. The patient also has a remote history of myocardial infarction back in 2006. He has a stent in his LAD. Last Myocardial Infarction Date:: 12/25/16 History of Any Multi-Drug Resistant Organisms: None Reported Past Surgical History: Heart Catheterization With Stent Past Anesthesia/Blood Transfusion Reactions: No Reported Reaction Date of Last Stent Placement:: 12/25/16 Past Psychological History: No Psychological Hx Reported Smoking Status: Never smoker Past Alcohol Use History: None Reported Past Drug Use History: None Reported General Exam - General Exam Comments Initial Comments: General: Appears in no acute distress. HEAD: Normal with no signs of head trauma. EYES: PERRLA, EOMI, conjunctiva normal, no discharge. ENT: Hearing grossly intact, normal oropharynx. RESPIRATORY: Clear breath sounds bilaterally. No wheezes, rales, or rhonchi. C/V: Regular rate and rhythm. S1 and S2 auscultated, no edema, peripheral pulses 2+ and intact throughout ABD: Abd is soft, nontender, nondistended EXT: Normal range of motion, no obvious deformity SKIN: No rashes or lesions observed on exposed skin. NEURO: Alert and oriented 4. Limitations: no limitations Course Vital Signs 04/25/23 04/25/23 04/25/23 04:09 04:29 04:30 Temperature 97.8 F Pulse Rate 82 Respiratory 18 Rate Blood Pressure 158/91 126/98 O2 Sat by Pulse 98 97 95 Oximetry 04/25/23 04/25/23 04/25/23 04:45 05:00 05:15 Temperature Pulse Rate 69 Respiratory 20 Rate Blood Pressure 142/80 137/86 131/73 O2 Sat by Pulse 94 L 93 L 93 L Oximetry 04/25/23 04/25/23 05:30 05:45 Temperature Pulse Rate 68 Respiratory 18 Rate Blood Pressure 132/78 132/76 O2 Sat by Pulse 96 94 L Oximetry Medical Decision Making - Medical Decision Making Was pt. sent in by a medical professional or institution ([facility], [employer], urgent care, hospital, or care home...) When possible be specific @ -No Did you speak to anyone other than the patient for history (EMS, parent, family, police, friend...)? What history was obtained from this source @ -No Did you review nursing and triage notes (agree or disagree)? Why? @ -I reviewed and agree with nursing and triage notes Were old charts reviewed (outside hosp., previous admission, EMS record, old EKG, old radiological studies, urgent care reports/EKG's, care home records)? Report findings @ -No old charts were reviewed Differential Diagnosis (chest pain, altered mental status, abdominal pain women, abdominal pain men, vaginal bleeding, weakness, fever, dyspnea, syncope, headache, dizziness, GI bleed, back pain, seizure, CVA, palpatations, mental health, musculoskeletal)? @ -Accidental overdose, normal physical exam, hypertension. This list is not all-inclusive. EKG interpreted by me (3pts min.). @ -None done X-rays interpreted by me (1pt min.). @ -None done CT interpreted by me (1pt min.). @ -None done U/S interpreted by me (1pt. min.). @ -None done What testing was considered but not performed or refused? (CT, X-rays, U/S, labs)? Why? @ -None What meds were considered but not given or refused? Why? @ -None Did you discuss the management of the patient with other professionals (pro fessionals i.e. [facility], [employer], lab, RT, psych nurse, forensic social worker, growth hacker, teacher, parole hearing officer, casework manager)? Give summary @ -No Was smoking cessation discussed for >3mins.? @ -No Was critical care preformed (if so, how long)? @ -No Were there social determinants of health that impacted care today? How? (Homelessness, low income, unemployed, alcoholism, drug addiction, transportation, low edu. Level, literacy, decrease access to med. care, alf, rehab)? @ -No Was there de-escalation of care discussed even if they declined (Discuss DNR or withdrawal of care, Hospice)? DNR status @ -No What co-morbidities impacted this encounter? (DM, HTN, Smoking, COPD, CAD, Cancer, CVA, ARF, Chemo, Hep., AIDS, mental health diagnosis, sleep apnea, morbid obesity)? @ -None Was patient admitted / discharged? Hospital course, mention meds given and route, prescriptions, significant lab abnormalities, going to OR and other pertinent info. @ -Based on the patient's presentation and physical exam, I do believe he experienced an accidental overdose of his metoprolol. Took an extra dose this morning. Presents for further evaluation at this time. Currently is asymptomatic. Vital signs within acceptable limits. I discussed that the patient would like to observe him for multiple hours. I do not believe that workup is required at this time. He was in agreement this plan. If patient becomes hypotensive or bradycardic and workup will be pursued but at this time and is not required. Patient was in agreement this plan. Following multiple hours of observation, patient's vital signs remained within acceptable limits. He has no acute complaints. We discussed that since he only took one extra dose of his blood pressure medication, he should skip his next scheduled dose at 9 AM. He'll resume dosing on his normal 3 times a day scheduling at 5 PM. He was in agreement this plan. He'll be discharged home at this time. His no symptoms. Patient was in agreement this plan. I instructed the patient to follow up with their PCP in the next 1-3 days. . I explained that the patient should return to the emergency department if they experience any worsening symptoms. Strict return precautions were discussed with the patient. The patient expressed understanding of these instructions. I answered all questions that the patient had. The patient was discharged home in good condition with their prescriptions and follow up information. Undiagnosed new problem with uncertain prognosis? @ -No Drug Therapy requiring intensive monitoring for toxicity (Heparin, Nitro, Insulin, Cardizem)? @ -No Were any procedures done? @ -No Diagnosis/symptom? @ -Accidental overdose, normal physical exam Acute, or Chronic, or Acute on Chronic? @ -Acute Uncomplicated (without systemic symptoms) or Complicated (systemic symptoms)? @ -Uncomplicated Side effects of treatment? @ -No Exacerbation, Progression, or Severe Exacerbation? @ -No Poses a threat to life or bodily function? How? (Chest pain, [place], [place], pneumonia, PE, COPD, DKA, ARF, appy, cholecystitis, CVA, Diverticulitis, Homicidal, Suicidal, threat to staff... and all critical care pts) @ -No Disposition Clinical Impression: Normal physical exam, Accidental drug overdose Disposition: HOME SELF-CARE Condition: Good Instructions (If sedation given, give patient instructions): Hypertension (ED) Is patient prescribed a controlled substance at d/c from ED?: No Referrals: Alejandra Dumont MD [Primary Care Provider] - 1-2 days Time of Disposition: 06:15
[2023-04-25 07:11] VITALS: BP 124/75
== END 2023-04-25 07:11 | disposition home or self-care (01) ==
LOC: EC 04:06
DX: Z04.3 Encounter for examination and observation following other accident (principal); T46.5X1A Poisoning by other antihypertensive drugs, accidental (unintentional), initial encounter; J44.9 Chronic obstructive pulmonary disease, unspecified; I25.10 Atherosclerotic heart disease of native coronary artery without angina pectoris; E11.22 Type 2 diabetes mellitus with diabetic chronic kidney disease; I13.0 Hypertensive heart and chronic kidney disease with heart failure and stage 1 through stage 4 chronic kidney disease, or unspecified chronic kidney disease; N18.9 Chronic kidney disease, unspecified; I50.9 Heart failure, unspecified; I25.2 Old myocardial infarction; Z88.6 Allergy status to analgesic agent; Z79.51 Long term (current) use of inhaled steroids; Z79.899 Other long term (current) drug therapy
CPT/HCPCS: 99283

== ENCOUNTER → 2024-01-29 | Outpatient (CLI) | payer MEDICARE ==
[2024-01-29 19:46] LABS: ALT 21 U/L (10-49); AST 19 U/L (14-35); Chol/HDL Ratio 2.96 Ratio; LDL Cholesterol,Calculated 84.1 mg/dL (0.0-131.0); VLDL Calculation 19.18 mg/dL (5.00-40.00)
== END | disposition home or self-care (01) ==
LOC: LABWHC1 10:05
PROVIDERS: ATTEND Internal Medicine Cardiovascular Disease
DX: E78.2 Mixed hyperlipidemia (principal)
CPT/HCPCS: 36415; 80061; 84450; 84460

== ENCOUNTER → 2025-02-11 | Outpatient (CLI) | payer MEDICARE ==
[2025-02-11 20:24] LABS: ALT 33 U/L (10-49); AST 28 U/L (14-35); Chol/HDL Ratio 3.33 Ratio; LDL Cholesterol,Calculated 115.2 mg/dL (0.0-131.0)
== END | disposition home or self-care (01) ==
LOC: LABWHC1 11:04
PROVIDERS: ATTEND Internal Medicine Cardiovascular Disease
DX: E78.2 Mixed hyperlipidemia (principal)
CPT/HCPCS: 36415; 80061; 84450; 84460